=== PATIENT | female | born 1945 | race Caucasian/White ===

== ENCOUNTER 2016-06-01 15:37 | Inpatient (IN) ==
--- NOTE | 2016-06-01 15:42 | Emergency Department Note ---
Disposition Clinical Impression: Pyelonephritis, Sepsis, Fever Disposition: Admitted As Inpatient Condition: Good General Adult HPI - General Chief complaint: ED Fever Stated complaint: Fever / N&V Time Seen by Provider: 06/01/16 15:39 - Related Data Home Medications Medication Instructions Recorded Confirmed Acetaminophen [Tylenol] 650 mg PO Q6HR PRN 12/07/15 06/01/16 Allopurinol [Zyloprim] 200 mg PO QAM 12/07/15 06/01/16 Famotidine [Pepcid] 20 mg PO BID 12/07/15 06/01/16 Ipratropium/Albuterol Neb [Duoneb] 3 ml IH Q4H PRN 12/07/15 06/01/16 Oxybutynin [Ditropan] 5 mg PO HS 12/07/15 06/01/16 Tiotropium [Spiriva] 18 mcg IH QAM 12/07/15 06/01/16 Zafirlukast [Accolate] 20 mg PO BID 12/07/15 06/01/16 BuPROPion SR (12 HR) [Wellbutrin 150 mg PO BID 06/01/16 06/01/16 SR] Diphenoxylate/Atropine [Lomotil 2 tab PO DAILY PRN 06/01/16 06/01/16 2.5 mg/0.025 mg] Fenofibrate [Lofibra] 160 mg PO DAILY 06/01/16 06/01/16 Ferrous Sulfate [Iron] 325 mg PO DAILY 06/01/16 06/01/16 Multivit,Th Iron,Other Min 1 each PO DAILY 06/01/16 06/01/16 [Therems-M] TraMADol [Ultram] 50 mg PO TID PRN 06/01/16 06/01/16 Warfarin [Coumadin] 2.5 mg PO DAILY 06/01/16 06/01/16 Previous Rx's Medication Instructions Recorded Budesonide/Formoterol 160/4.5 2 puff IH BIDR #2 inhaler 12/10/15 [Symbicort 160/4.5] GuaiFENesin ER [Mucinex] 600 mg PO BID PRN 10 Days 12/10/15 Allergies Allergy/AdvReac Type Severity Reaction Status Date / Time No Known Allergies Allergy Verified 06/01/16 17:19 Past Medical History - Past Medical History Medical history: Reports: asthma Surgical history: Reports: hysterectomy Psychiatric history: Reports: depression - Social History Smoking Status: Never smoker Smokeless Tobacco Status: No Alcohol use: Reports: none Drug use: Reports: none Course Vital Signs Temperature 102.5 F H 06/01/16 15:39 Pulse Rate 113 06/01/16 15:39 Respiratory Rate 16 06/01/16 15:39 Blood Pressure 114/81 06/01/16 15:39 O2 Sat by Pulse Oximetry 94 L 06/01/16 15:39 Temperature 99.4 F 06/01/16 18:28 Pulse Rate 98 06/01/16 17:05 Respiratory Rate 18 06/01/16 18:28 Blood Pressure 104/70 06/01/16 18:28 O2 Sat by Pulse Oximetry 94 L 06/01/16 17:05 Oxygen Delivery Oxygen Delivery Room Air Medical Decision Making - Lab Data Result diagrams: 06/01/16 16:47 06/01/16 16:47 Lab Results 06/01/16 06/01/16 06/01/16 Range/Units 16:07 16:47 16:47 WBC 7.8 D (4.3-11.1) K/mcL RBC 3.22 L (3.82-4.97) M/mcL Hgb 10.2 L (11.5-15.4) g/dL Hct 31.1 L (35.3-44.9) % MCV 96.6 (83.0-100.0) fL MCH 31.7 (28.0-33.3) pg MCHC 32.8 (31.6-35.5) g/dL RDW 13.9 (11.5-14.5) % Plt Count 229 (140-400) K/mcL MPV 9.8 (9.4-12.4) fL Immature Gran % 0.4 (0-4) % Seg Neutrophils % 74.2 % Lymphocytes % 7.3 % Monocytes % 15.7 % Eosinophils % 1.9 % Basophils % 0.5 % Neutrophils # 5.8 (1.6-8.9) K/mcL Lymphocytes # 0.6 (0.6-4.6) K/mcL Monocytes # 1.2 (0.0-1.3) K/mcL Eosinophils # 0.2 (0.0-0.6) K/mcL Basophils # 0.0 (0.0-0.2) K/mcL PT 21.5 H (9.4-12.1) Seconds INR 2.0 Sodium (136-145) mEq/L Potassium (3.5-4.5) mEq/L Chloride (98-109) mEq/L Carbon Dioxide (19-29) mEq/L BUN (7-20) mg/dL Creatinine (0.57-1.11) mg/dL Est GFR ( Amer) (> 60) Est GFR (Non-Af Amer) (> 60) BUN/Creatinine Ratio (6-26) Glucose (70-99) mg/dL Calculated Osmolality (280-300) Lactic Acid (0.5-2.2) mmol/L Calcium (8.6-10.8) mg/dL Total Bilirubin (0.2-1.2) mg/dL AST (5-34) Units/L ALT (0-55) Units/L Alkaline Phosphatase (38-126) Units/L Troponin I (0-0.03) ng/mL Serum Total Protein (6.0-8.3) g/dL Albumin (3.5-5.0) g/dL Globulin (2.4-3.5) g/dL Albumin/Globulin Ratio (1.1-2.2) Urine Color Yellow (Yellow) Urine Clarity Turbid A (Clear) Urine pH 7.5 (5.0-8.0) pH Units Ur Specific [place] 1.012 (1.010-1.025) Urine Protein 30 H (Neg-Trace) mg/dL Urine Glucose (UA) Normal (Normal) mg/dL Urine Ketones Negative (Negative) mg/dL Urine Blood Moderate H (Negative) Urine Nitrite Positive A (Negative) Urine Bilirubin Negative (Negative) Urine Urobilinogen Normal (Normal) mg/dL Ur Leukocyte Esterase Large H (Negative) Urine Microscopic RBC 15-30 H (0-3) per hpf Urine Microscopic WBC TNTC H (0-3) per hpf Ur Squamous Epith Cells Many H (None-Few) per lpf Urine Bacteria Many H (None-Few) per hpf Hyaline Casts None Seen (None-Few) per lpf 06/01/16 06/01/16 06/01/16 Range/Units 16:47 16:47 16:47 WBC (4.3-11.1) K/mcL RBC (3.82-4.97) M/mcL Hgb (11.5-15.4) g/dL Hct (35.3-44.9) % MCV (83.0-100.0) fL MCH (28.0-33.3) pg MCHC (31.6-35.5) g/dL RDW (11.5-14.5) % Plt Count (140-400) K/mcL MPV (9.4-12.4) fL Immature Gran % (0-4) % Seg Neutrophils % % Lymphocytes % % Monocytes % % Eosinophils % % Basophils % % Neutrophils # (1.6-8.9) K/mcL Lymphocytes # (0.6-4.6) K/mcL Monocytes # (0.0-1.3) K/mcL Eosinophils # (0.0-0.6) K/mcL Basophils # (0.0-0.2) K/mcL PT (9.4-12.1) Seconds INR Sodium 140 (136-145) mEq/L Potassium 3.8 (3.5-4.5) mEq/L Chloride 108 (98-109) mEq/L Carbon Dioxide 23 (19-29) mEq/L BUN 20 (7-20) mg/dL Creatinine 1.37 H (0.57-1.11) mg/dL Est GFR ( Amer) 46 L (> 60) Est GFR (Non-Af Amer) 38 L (> 60) BUN/Creatinine Ratio 15 (6-26) Glucose 105 H (70-99) mg/dL Calculated Osmolality 293 (280-300) Lactic Acid 0.6 (0.5-2.2) mmol/L Calcium 8.7 (8.6-10.8) mg/dL Total Bilirubin 0.6 (0.2-1.2) mg/dL AST 20 (5-34) Units/L ALT 11 (0-55) Units/L Alkaline Phosphatase 48 (38-126) Units/L Troponin I 0.01 (0-0.03) ng/mL Serum Total Protein 6.4 (6.0-8.3) g/dL Albumin 3.0 L (3.5-5.0) g/dL Globulin 3.4 (2.4-3.5) g/dL Albumin/Globulin Ratio 0.9 L (1.1-2.2) Urine Color (Yellow) Urine Clarity (Clear) Urine pH (5.0-8.0) pH Units Ur Specific [place] (1.010-1.025) Urine Protein (Neg-Trace) mg/dL Urine Glucose (UA) (Normal) mg/dL Urine Ketones (Negative) mg/dL Urine Blood (Negative) Urine Nitrite (Negative) Urine Bilirubin (Negative) Urine Urobilinogen (Normal) mg/dL Ur Leukocyte Esterase (Negative) Urine Microscopic RBC (0-3) per hpf Urine Microscopic WBC (0-3) per hpf Ur Squamous Epith Cells (None-Few) per lpf Urine Bacteria (None-Few) per hpf Hyaline Casts (None-Few) per lpf Attestation Statement - Attestation Attestation: I examined this patient and my medical decision-making was reviewed with the [facility]/PA/Advanced Practice Nurse/Resident Physician. I agree with the documented findings, disposition and treatment plan as described except to the extent set forth below. [id number] time provided Patient presents via EMS from the extended care facility for nausea, vomiting, fever. Home medications reviewed by me. Patient appears in no acute distress on exam. Patient seen and evaluated in conjunction with resident physician
[2016-06-01] MEDS ORDERED: Acetaminophen 650 MG RECTAL SUPP RC ONE (15:45)
--- NOTE | 2016-06-01 15:52 | Emergency Department Note ---
Disposition Clinical Impression: Pyelonephritis Sepsis Qualifiers: Sepsis type: sepsis due to unspecified organism Qualified Code(s): A41.9 - Sepsis, unspecified organism Fever Qualifiers: Fever type: unspecified Qualified Code(s): R50.9 - Fever, unspecified Disposition: Admitted As Inpatient Condition: Good Referrals: NO,PCP [Primary Care Provider] - Forms: ED Satisfaction Letter Time of Disposition: 17:37 Fever HPI - General Chief Complaint: ED Fever Stated Complaint: Fever / N&V Time Seen by Provider: 06/01/16 15:39 Source: patient, EMS Mode of arrival: EMS Limitations: no limitations Nursing Notes Reviewed: Yes Vital Signs Reviewed: Yes - History of Present Illness HPI Narrative: 70-year-old female presents to ED via EMS from longterm for fever, nausea, and vomiting. Patient had oral temperature of 103.2 checked after having a episode of nausea with nonbloody, food content emesis around lunch. Patient does not complain of any pain at this time. She wears a depens and denies urinary symptoms or diarrhea. Here her temperature per rectal 102.5. History of anxiety, hyperlipidemia, and depression. Denies any URI, cough, recent illness. Pt Subjective Complaint: fever - Related Data Home Medications Medication Instructions Recorded Confirmed Acetaminophen [Tylenol] 650 mg PO Q6HR PRN 12/07/15 06/01/16 Allopurinol [Zyloprim] 200 mg PO QAM 12/07/15 06/01/16 Famotidine [Pepcid] 20 mg PO BID 12/07/15 06/01/16 Ipratropium/Albuterol Neb [Duoneb] 3 ml IH Q4H PRN 12/07/15 06/01/16 Oxybutynin [Ditropan] 5 mg PO HS 12/07/15 06/01/16 Tiotropium [Spiriva] 18 mcg IH QAM 12/07/15 06/01/16 Zafirlukast [Accolate] 20 mg PO BID 12/07/15 06/01/16 BuPROPion SR (12 HR) [Wellbutrin 150 mg PO BID 06/01/16 06/01/16 SR] Diphenoxylate/Atropine [Lomotil 2 tab PO DAILY PRN 06/01/16 06/01/16 2.5 mg/0.025 mg] Fenofibrate [Lofibra] 160 mg PO DAILY 06/01/16 06/01/16 Ferrous Sulfate [Iron] 325 mg PO DAILY 06/01/16 06/01/16 Multivit,Th Iron,Other Min 1 each PO DAILY 06/01/16 06/01/16 [Therems-M] TraMADol [Ultram] 50 mg PO TID PRN 06/01/16 06/01/16 Warfarin [Coumadin] 2.5 mg PO DAILY 06/01/16 06/01/16 Previous Rx's Medication Instructions Recorded Budesonide/Formoterol 160/4.5 2 puff IH BIDR #2 inhaler 12/10/15 [Symbicort 160/4.5] GuaiFENesin ER [Mucinex] 600 mg PO BID PRN 10 Days 12/10/15 Allergies Allergy/AdvReac Type Severity Reaction Status Date / Time No Known Allergies Allergy Verified 06/01/16 17:19 All systems ED: reviewed and negative except as stated. Constitutional: Reports: fever. Denies: chills ENT ED: Denies: congestion Cardiovascular: Denies: chest pain, palpitations Respiratory: Denies: cough, dyspnea Gastrointestinal: Reports: nausea, vomiting. Denies: abdominal pain, diarrhea Genitourinary: Denies: urgency, dysuria, frequency Integumentary: Denies: rash, abrasion Fever PMH - Past Medical History Medical history: Reports: asthma Surgical history: Reports: hysterectomy Psychiatric history: Reports: depression SALES SUPPORT ASSISTANT history: Reports: no SALES SUPPORT ASSISTANT history - Social History Smoking Status: Never smoker Alcohol use: Reports: none Drug use: Reports: none Physical Exam - General Limitations: no limitations General appearance: alert, in no apparent distress, other (warm to the touch) - Head Head exam: atraumatic, normocephalic, normal inspection - Eye Eye exam: Present: normal appearance, PERRL, EOMI - ENT ENT exam: normal exam, normal oropharynx, mucous membranes moist, other ( edentulous) - Neck Neck exam: Present: normal inspection, full ROM, trachea midline - Chest Chest inspection: Present: normal inspection, symmetric chest wall rise. Absent : tenderness, rash - Respiratory Respiratory exam: Present: normal lung sounds bilaterally. Absent: respiratory distress, wheezes - Cardiovascular Cardiovascular exam: Present: regular rate, normal rhythm, normal heart sounds - Abdominal Exam Abdominal exam: Present: soft, Non-Tender, normal bowel sounds. Absent: tenderness, distention, guarding, rebound, rigidity - Extremities Exam Extremities exam: Present: normal inspection, full ROM, normal capillary refill. Absent: tenderness, pedal edema, calf tenderness - Neurological Exam Neurological exam: Present: alert, oriented X3 - Psychiatric Psychiatric exam: Present: normal affect, normal mood - Skin Skin exam: Present: warm, dry, intact, normal color. Absent: rash, erythema Course Course Narrative: 80-year-old female presents with fever. She is febrile 102.5 rectal temperature. She is tachycardic 115. Sepsis workup initiated. Patient appears in no acute distress. She is very warm to the touch. Lungs are clear auscultation bilaterally. Heart is regular rate and rhythm. Oropharynx is clear without any erythema or exudates. No obvious source of infection. No rashes visualized. Tylenol for fever. - Reevaluation(s) Reevaluation #1: Labs reviewed. WBC 7.8 urine appears infected. Prior cultures grew ESBL. Given her symptoms will treat for pyelonephritis with Zosyn. Cr 1.37 near baseline. Will admit patient. Time: 17:38 - Consultations Consultation #1: Spoke to bernadine Gimenez to admit for Pyelonephritis, fever, sepsis. Time: 17:36 Vital Signs Temperature 102.5 F H 06/01/16 15:39 Pulse Rate 113 06/01/16 15:39 Respiratory Rate 16 06/01/16 15:39 Blood Pressure 114/81 06/01/16 15:39 O2 Sat by Pulse Oximetry 94 L 06/01/16 15:39 Temperature 102.5 F H 06/01/16 15:39 Pulse Rate 98 06/01/16 17:05 Respiratory Rate 18 06/01/16 17:05 Blood Pressure 114/72 06/01/16 17:05 O2 Sat by Pulse Oximetry 94 L 06/01/16 17:05 Oxygen Delivery Oxygen Delivery Room Air Fever - Medical Records Medical records reviewed: Yes I reviewed the patient's medical records. ECHO EF 60% mild diastolic dysfunction with atypical septal motion consistent with BBB. - Lab Data Lab results reviewed: Yes I reviewed the patient's lab results. Result diagrams: 06/01/16 16:47 06/01/16 16:47 Lab Results 06/01/16 06/01/16 06/01/16 Range/Units 16:07 16:47 16:47 WBC 7.8 D (4.3-11.1) K/mcL RBC 3.22 L (3.82-4.97) M/mcL Hgb 10.2 L (11.5-15.4) g/dL Hct 31.1 L (35.3-44.9) % MCV 96.6 (83.0-100.0) fL MCH 31.7 (28.0-33.3) pg MCHC 32.8 (31.6-35.5) g/dL RDW 13.9 (11.5-14.5) % Plt Count 229 (140-400) K/mcL MPV 9.8 (9.4-12.4) fL Immature Gran % 0.4 (0-4) % Seg Neutrophils % 74.2 % Lymphocytes % 7.3 % Monocytes % 15.7 % Eosinophils % 1.9 % Basophils % 0.5 % Neutrophils # 5.8 (1.6-8.9) K/mcL Lymphocytes # 0.6 (0.6-4.6) K/mcL Monocytes # 1.2 (0.0-1.3) K/mcL Eosinophils # 0.2 (0.0-0.6) K/mcL Basophils # 0.0 (0.0-0.2) K/mcL PT 21.5 H (9.4-12.1) Seconds INR 2.0 Sodium (136-145) mEq/L Potassium (3.5-4.5) mEq/L Chloride (98-109) mEq/L Carbon Dioxide (19-29) mEq/L BUN (7-20) mg/dL Creatinine (0.57-1.11) mg/dL Est GFR ( Amer) (> 60) Est GFR (Non-Af Amer) (> 60) BUN/Creatinine Ratio (6-26) Glucose (70-99) mg/dL Calculated Osmolality (280-300) Lactic Acid (0.5-2.2) mmol/L Calcium (8.6-10.8) mg/dL Total Bilirubin (0.2-1.2) mg/dL AST (5-34) Units/L ALT (0-55) Units/L Alkaline Phosphatase (38-126) Units/L Troponin I (0-0.03) ng/mL Serum Total Protein (6.0-8.3) g/dL Albumin (3.5-5.0) g/dL Globulin (2.4-3.5) g/dL Albumin/Globulin Ratio (1.1-2.2) Urine Color Yellow (Yellow) Urine Clarity Turbid A (Clear) Urine pH 7.5 (5.0-8.0) pH Units Ur Specific [place] 1.012 (1.010-1.025) Urine Protein 30 H (Neg-Trace) mg/dL Urine Glucose (UA) Normal (Normal) mg/dL Urine Ketones Negative (Negative) mg/dL Urine Blood Moderate H (Negative) Urine Nitrite Positive A (Negative) Urine Bilirubin Negative (Negative) Urine Urobilinogen Normal (Normal) mg/dL Ur Leukocyte Esterase Large H (Negative) Urine Microscopic RBC 15-30 H (0-3) per hpf Urine Microscopic WBC TNTC H (0-3) per hpf Ur Squamous Epith Cells Many H (None-Few) per lpf Urine Bacteria Many H (None-Few) per hpf Hyaline Casts None Seen (None-Few) per lpf 06/01/16 06/01/16 06/01/16 Range/Units 16:47 16:47 16:47 WBC (4.3-11.1) K/mcL RBC (3.82-4.97) M/mcL Hgb (11.5-15.4) g/dL Hct (35.3-44.9) % MCV (83.0-100.0) fL MCH (28.0-33.3) pg MCHC (31.6-35.5) g/dL RDW (11.5-14.5) % Plt Count (140-400) K/mcL MPV (9.4-12.4) fL Immature Gran % (0-4) % Seg Neutrophils % % Lymphocytes % % Monocytes % % Eosinophils % % Basophils % % Neutrophils # (1.6-8.9) K/mcL Lymphocytes # (0.6-4.6) K/mcL Monocytes # (0.0-1.3) K/mcL Eosinophils # (0.0-0.6) K/mcL Basophils # (0.0-0.2) K/mcL PT (9.4-12.1) Seconds INR Sodium 140 (136-145) mEq/L Potassium 3.8 (3.5-4.5) mEq/L Chloride 108 (98-109) mEq/L Carbon Dioxide 23 (19-29) mEq/L BUN 20 (7-20) mg/dL Creatinine 1.37 H (0.57-1.11) mg/dL Est GFR ( Amer) 46 L (> 60) Est GFR (Non-Af Amer) 38 L (> 60) BUN/Creatinine Ratio 15 (6-26) Glucose 105 H (70-99) mg/dL Calculated Osmolality 293 (280-300) Lactic Acid 0.6 (0.5-2.2) mmol/L Calcium 8.7 (8.6-10.8) mg/dL Total Bilirubin 0.6 (0.2-1.2) mg/dL AST 20 (5-34) Units/L ALT 11 (0-55) Units/L Alkaline Phosphatase 48 (38-126) Units/L Troponin I 0.01 (0-0.03) ng/mL Serum Total Protein 6.4 (6.0-8.3) g/dL Albumin 3.0 L (3.5-5.0) g/dL Globulin 3.4 (2.4-3.5) g/dL Albumin/Globulin Ratio 0.9 L (1.1-2.2) Urine Color (Yellow) Urine Clarity (Clear) Urine pH (5.0-8.0) pH Units Ur Specific [place] (1.010-1.025) Urine Protein (Neg-Trace) mg/dL Urine Glucose (UA) (Normal) mg/dL Urine Ketones (Negative) mg/dL Urine Blood (Negative) Urine Nitrite (Negative) Urine Bilirubin (Negative) Urine Urobilinogen (Normal) mg/dL Ur Leukocyte Esterase (Negative) Urine Microscopic RBC (0-3) per hpf Urine Microscopic WBC (0-3) per hpf Ur Squamous Epith Cells (None-Few) per lpf Urine Bacteria (None-Few) per hpf Hyaline Casts (None-Few) per lpf - Radiology Data Radiology results reviewed: Yes I reviewed the patient's radiology results. Chest X-Ray 06/01/16 16:14 IMPRESSION: Mild left basilar atelectasis is similar to prior. No evidence of pleural effusion. D/ / 06/01/2016 16:39:45 Mary Lewis MD / Marina Garcia Interpreting Provider: Mary Lewis MD - EKG Data EKG attestation: Yes I reviewed and interpreted this EKG. EKG results narrative: EKG performed 1556 sinus tachycardia 108 bpm, there are no ST elevations or depressions, no T-wave inversions. Intervals are within normal limits LA interval 135 QRS 97 QT QTC 326 389. Compared old EKG performed 12/07/2015 shows consistent findings normal sinus rhythm 98 bpm. No acute ischemic changes.
[2016-06-01] MEDS ORDERED: 0.9 % Sodium Chloride 2,000 ML IVC ONE (16:15)
[2016-06-01 16:18] LABS: Bilirubin,Urine Negative (Negative); Blood,Urine Moderate (Negative); Clarity,Urine Turbid (Clear); Color,Urine Yellow (Yellow); Glucose,Urine (UA) Normal (Normal); Ketones,Urine Negative (Negative); Leukocyte Esterase,Urine Large (Negative); Nitrite,Urine Positive (Negative); PH,Urine 7.5 pH Units (5.0-8.0); Protein,Urine 30 mg/dL (Neg-Trace); Specific Gravity,Urine 1.012 (1.010-1.025); Urobilinogen,Urine Normal (Normal)
[2016-06-01 16:21] LABS: Bacteria,Urine Many per hpf (None-Few); Hyaline Casts,Urine None Seen per lpf (None-Few); RBC,Urine 15-30 per hpf (0-3); Squamous Epithelial Cell,Urine Many per lpf (None-Few); WBC,Urine TNTC per hpf (0-3)
[2016-06-01 17:08] LABS: Basophils % 0.5 %; Eosinophils # 0.2 K/mcL (0.0-0.6); Eosinophils % 1.9 %; Hematocrit 31.1 % (35.3-44.9); Hemoglobin 10.2 g/dL (11.5-15.4); Immature Granulocytes % 0.4 % (0-4); Lymphocytes # 0.6 K/mcL (0.6-4.6); Lymphocytes % 7.3 %; Mean Corpuscular HGB Conc 32.8 g/dL (31.6-35.5); Mean Corpuscular Hemoglobin 31.7 pg (28.0-33.3); Mean Corpuscular Volume 96.6 fL (83.0-100.0); Mean Platelet Volume 9.8 fL (9.4-12.4); Monocytes # 1.2 K/mcL (0.0-1.3); Monocytes % 15.7 %; Neutrophils # 5.8 K/mcL (1.6-8.9); Platelet Count 229 K/mcL (140-400); Red Blood Count 3.22 M/mcL (3.82-4.97); Red Cell Distribution Width 13.9 % (11.5-14.5); Segmented Neutrophils % 74.2 %
[2016-06-01 17:14] LABS: Prothrombin Time 21.5 Seconds (9.4-12.1)
[2016-06-01 17:21] LABS: Albumin/Globulin Ratio 0.9 (1.1-2.2); Bilirubin,Total 0.6 mg/dL (0.2-1.2); Calcium 8.7 mg/dL (8.6-10.8); Globulin 3.4 g/dL (2.4-3.5); Potassium 3.8 mEq/L (3.5-4.5); Total Protein 6.4 g/dL (6.0-8.3)
[2016-06-01] MEDS ORDERED: Piperacillin/Tazobactam 3.375 GM in D5% in Water (Mini-Bag+) 100 ML IVPB ONE (17:34)
--- NOTE | 2016-06-01 20:46 | Internal Med History&Physical ---
<Sarahy Hurt - Last Filed: 06/01/16 21:55> Date of Encounter: 06/01/16 Time of Encounter: 20:42 Assessment and Plan (1) Sepsis Current visit: Yes Status: Suspected patient presented to ER with tachycardia and fever due to pyelonephritis - previous urine culture grew E coli ESBL fluid bolus given in ER, lactic acid 0.6 urine culture, blood culture IV antibiotics - ertapenem supportive care recheck AM labs Qualifiers: Sepsis type: Escherichia coli Qualified Code(s): A41.51 - Sepsis due to Escherichia coli [E. coli] (2) Pyelonephritis Current visit: Yes Status: Acute CT abdomen pelvis due to recurrent ESBL UTI/pyelo infections (3) H/O deep venous thrombosis Current visit: Yes Status: Chronic patient thinks this is recent, this year INR therapeutic in ER continue coumadin, pharmacy to dose (4) Asthma Current visit: Yes Status: Chronic not in exacerbation continue home medications Qualifiers: Asthma severity: unspecified severity Asthma complication type: uncomplicated Qualified Code(s): J45.909 - Unspecified asthma, uncomplicated (5) Anemia Current visit: No Status: Chronic chronic at baseline continue home iron supplementation Qualifiers: Anemia type: iron deficiency Iron deficiency anemia type: unspecified iron deficiency Qualified Code(s): D50.9 - Iron deficiency anemia, unspecified (6) DVT prophylaxis Current visit: Yes Status: Acute SQ heparin Internal Medicine - H&P: HPI Chief complaint: fever Admitted From: Emergency Dept Plans for Post Hospital Care: Transfer [facility] History of present illness: Ms. Luo is a 70 year old female with a past medical history of asthma who presents to the emergency room with a complaint of fever and emesis 1 day. 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 Her fever responded to rectal Tylenol given in the emergency room. UA suggestive of pyelonephritis.. Previous urine culture grew E coli ESBL. Past Med Surg Social Fam HX - Past Medical History Attestation: Yes The following information was validated with the patient. Medical history: asthma Psychiatric history: depression - Past Surgical History Surgical History: hysterectomy - Social History Smoking Status: Never smoker Smokeless Tobacco Status: No Alcohol use: none Drug use: none - Family History Father Living Status: Hx Family Cancer: Yes Mother Living Status: Still Living Internal Medicine - H&P: Meds Acetaminophen [Tylenol] 650 mg PO Q6HR PRN 12/07/15 [History] Allopurinol [Zyloprim] 200 mg PO QAM 12/07/15 [History] Famotidine [Pepcid] 20 mg PO BID 12/07/15 [History] Ipratropium/Albuterol Neb [Duoneb] 3 ml IH Q4H PRN 12/07/15 [History] Oxybutynin [Ditropan] 5 mg PO HS 12/07/15 [History] Tiotropium [Spiriva] 18 mcg IH QAM 12/07/15 [History] Zafirlukast [Accolate] 20 mg PO BID 12/07/15 [History] Budesonide/Formoterol 160/4.5 [Symbicort 160/4.5] 2 puff IH BIDR #2 inhaler 02/13 [Rx] GuaiFENesin ER [Mucinex] 600 mg PO BID PRN 10 Days 12/10/15 [Rx] BuPROPion SR (12 HR) [Wellbutrin SR] 150 mg PO BID 06/01/16 [History] Diphenoxylate/Atropine [Lomotil 2.5 mg/0.025 mg] 2 tab PO DAILY PRN 06/01/16 [ History] Fenofibrate [Lofibra] 160 mg PO DAILY 06/01/16 [History] Ferrous Sulfate [Iron] 325 mg PO DAILY 06/01/16 [History] Multivit,Th Iron,Other Min [Therems-M] 1 each PO DAILY 06/01/16 [History] TraMADol [Ultram] 50 mg PO TID PRN 06/01/16 [History] Warfarin [Coumadin] 2.5 mg PO DAILY 06/01/16 [History] Allergies No Known Allergies Allergy (Verified 06/01/16 17:19) All Systems PM: A 10-system review of systems was performed and is negative for pertinent findings except as documented above in the HPI. - Constitutional Constitutional: fever(s), no chills, no night sweats - EENT Eyes: no change in vision, no discharge, no pain, no photophobia Ears: no ear discharge, no ear pain, no tinnitus Nose, mouth and throat: no dysphagia, no nasal discharge, no neck pain, no sore throat - Cardiovascular Cardiovascular ROS IM: no chest pain, no diaphoresis, no dyspnea, no lightheadedness, no palpitations, no syncope - Respiratory Respiratory: no cough, no dyspnea, no wheezing, no excessive phlegm production - Gastrointestinal Gastrointestinal: nausea, vomiting, no abdominal pain, no diarrhea, no hematemesis, no hematochezia, no melena - Genitourinary Genitourinary: no change in urinary stream, no dysuria, no flank pain, no hematuria - Musculoskeletal Musculoskeletal ROS IM: no numbness, no tingling - Integumentary Integumentary IM: no rash, no unusual bruising - Neurological Neurological ROS: no confusion, no convulsions, no focal weakness, no numbness, no tingling, no tremor(s) - Hematologic/Lymphatic Hematologic/Lymphatic: no easy bruising - Constitutional Vitals: Temp Pulse Resp BP Pulse Ox 98 F 77 18 108/68 95 06/01/16 19:21 06/01/16 19:21 06/01/16 19:21 06/01/16 19:21 06/01/16 19:21 General appearance: Present: cooperative, A&O X 3, pleasant, answers questions appropriately - Head Head exam: Present: atraumatic, normocephalic - Eye Eye exam: Present: PERRL, conjuntiva pink, sclera anicteric Pupils: Present: PERRL - Neck Neck exam general surgery: Present: supple, trachea midline. Absent: lymphadenopathy - Respiratory Respiratory exam: Present: CTAB. Absent: accessory muscle use, rales, rhonchi, wheezes - Cardiovascular Cardiovascular exam: Present: RRR, +S1, +S2. Absent: diastolic murmur, gallop, rubs, systolic murmur - GI/Abdominal GI/Abdominal exam: Present: normal bowel sounds, soft, no peritoneal signs. Absent: distended, tenderness - Extremities Exam Extremities exam: Present: warm, radial pulses palpable and symetrical. Absent : calf tenderness, cyanotic, pedal edema - Neurological Exam Neurological exam: Present: CN II-XII intact, oriented X3, no focal deficits. Absent: pronater drift, facial droop, speech deficit - Skin Skin exam: Present: dry, intact Internal Med - H&P Results - Labs CBC & Chem 7: 06/01/16 16:47 06/01/16 16:47 <Roseline Richardson - Last Filed: 06/02/16 03:56> Date of Encounter: 06/01/16 Time of Encounter: 19:30 Assessment and Plan (1) Sepsis Current visit: Yes Status: Suspected Qualifiers: Sepsis type: Escherichia coli Qualified Code(s): A41.51 - Sepsis due to Escherichia coli [E. coli] (2) Pyelonephritis Current visit: Yes Status: Acute (3) Asthma Current visit: Yes Status: Chronic Qualifiers: Asthma severity: unspecified severity Asthma complication type: uncomplicated Qualified Code(s): J45.909 - Unspecified asthma, uncomplicated (4) Anemia Current visit: No Status: Chronic Qualifiers: Anemia type: iron deficiency Iron deficiency anemia type: unspecified iron deficiency Qualified Code(s): D50.9 - Iron deficiency anemia, unspecified Internal Medicine - H&P: HPI Admitted From: Emergency Dept Plans for Post Hospital Care: [facility] History of present illness: I examined this patient and my medical decision-making was reviewed with the Resident Physician. I agree with the documented history of present illness, review of systems, past medical, surgical social and family histories and examination findings, disposition and treatment plan as described above except to any changes set forth below. Ms. Luo is a 70 year old female patient who presented to the ER with complaints of nausea or vomiting and fever. Previous history of urinary tract infection with ESBL Escherichia coli. Denies any abdominal pain. No dysuria. Denies any lightheadedness chills or rigors. She is already feeling better. All Systems PM: A 10-system review of systems was performed and is negative for pertinent findings except as documented above in the HPI. - Constitutional Vitals: Temp Pulse Resp BP Pulse Ox 98.2 F 74 18 106/67 95 06/01/16 23:43 06/01/16 23:43 06/01/16 23:43 06/01/16 23:43 06/01/16 23:43 General appearance: Present: cooperative, A&O X 3, pleasant, no acute distress, answers questions appropriately - Respiratory Respiratory exam: Present: CTAB. Absent: accessory muscle use, rales, rhonchi, wheezes - Cardiovascular Cardiovascular exam: Present: RRR, +S1, +S2. Absent: diastolic murmur, gallop, rubs, systolic murmur - Extremities Exam Extremities exam: Present: warm, radial pulses palpable and symetrical. Absent : calf tenderness, cyanotic, pedal edema - Neurological Exam Neurological exam: Present: CN II-XII intact, oriented X3, no focal deficits. Absent: pronater drift, facial droop, speech deficit Internal Med - H&P Results - Labs CBC & Chem 7: 06/01/16 16:47 06/01/16 16:47 - Impressions ITS Impressions Abdomen/Pelvis CT 06/01/16 21:42 IMPRESSION: 1. Scattered calcific densities along the left kidney measure up to 8 mm, which are favored to represent nonobstructive calculi, with parenchymal calcifications less likely. Several calcific foci along the inferior pole are associated with cystic spaces, which could represent stones within calyceal diverticula or less likely nodular calcification of renal cysts. Further evaluation with CT urogram could be considered. 2. Chronic urothelial thickening on the left,, likely the sequelae of prior infection/inflammation. Punctate nonobstructive calculi are seen in the distal left ureter, which is unchanged since at least 12/28/2015. The left ureter is decompressed. 3. Malrotated right kidney. No right-sided renal calculi. 4. Cholelithiasis. 5. Moderate diverticulosis. D/ / Jag Saini MD / Jag Saini MD Interpreting Provider: Jag Saini MD - Attending Attestation This document has been at least partially created by [employer] recognition technology by Dr. Richardson. Errors in grammar, wording or other phrases may exist. If errors are found after the documentation is signed, they will be addressed individually in the addendum section of this document when appropriate. Sepsis with possible ESBL Escherichia coli from acute pyelonephritis: We will treat with IV ertapenem. Follow culture results. Patient may need long-term IV antibiotics.
[2016-06-01] MEDS ORDERED: Ondansetron ODT 4 MG TAB.RAPDIS SL PRN (20:53)
[2016-06-01] MEDS ORDERED: Acetaminophen 325 MG TABLET PO PRN (20:53)
[2016-06-01] MEDS ORDERED: Naloxone 0.4 MG/ML INJ IVP PRN (20:53)
[2016-06-01] MEDS ORDERED: traMADol 50 MG TABLET PO PRN (20:56)
[2016-06-01] MEDS ORDERED: Diphenoxylate/Atropine 1 TAB TABLET PO PRN (20:56)
[2016-06-01] MEDS: Famotidine 20 MG TABLET PO SCH (21:50)
[2016-06-01] MEDS: BuPROPion SR (12 HR) 150 MG TABLET PO SCH (21:50)
[2016-06-01] MEDS: *HR* Heparin 5,000 UNIT/ML VIAL SQ SCH (21:50)
[2016-06-02 04:00] LABS: Basophils % 0.5 %; Eosinophils # 0.2 K/mcL (0.0-0.6); Eosinophils % 3.1 %; Hematocrit 30.3 % (35.3-44.9); Hemoglobin 9.6 g/dL (11.5-15.4); Immature Granulocytes % 0.4 % (0-4); Lymphocytes # 0.8 K/mcL (0.6-4.6); Lymphocytes % 13.9 %; Mean Corpuscular HGB Conc 31.7 g/dL (31.6-35.5); Mean Corpuscular Volume 97.7 fL (83.0-100.0); Mean Platelet Volume 9.9 fL (9.4-12.4); Monocytes % 17.4 %; Neutrophils # 3.6 K/mcL (1.6-8.9); Platelet Count 223 K/mcL (140-400); Red Cell Distribution Width 14.1 % (11.5-14.5); Segmented Neutrophils % 64.7 %
[2016-06-02 04:23] LABS: Calcium 8.3 mg/dL (8.6-10.8)
[2016-06-02] MEDS: Budesonide/Formoterol 160/4.5 MDI IH SCH ×3 (04:53→19:54)
[2016-06-02] MEDS: *HR* Heparin 5,000 UNIT/ML VIAL SQ SCH ×3 (06:08→22:19)
[2016-06-02 08:01] LABS: blaKPC Carbapenem-Resist Gene Not Detected (Not Detect)
[2016-06-02 08:02] LABS: Acinetobacter baumannii by PCR Not Detected (Not Detect); Candida albicans by PCR Not Detected (Not Detect); Candida glabrata by PCR Not Detected (Not Detect); Candida krusei by PCR Not Detected (Not Detect); Candida parapsilosis by PCR Not Detected (Not Detect); Candida tropicalis by PCR Not Detected (Not Detect); Enterococcus by PCR Not Detected (Not Detect); Escherichia coli by PCR ***DETECTED*** (Not Detect); Klebsiella oxytoca by PCR Not Detected (Not Detect); Klebsiella pneumoniae by PCR Not Detected (Not Detect); Pseudomonas aeruginosa by PCR Not Detected (Not Detect); Serratia marcescens by PCR Not Detected (Not Detect); Staphylococcus aureus by PCR Not Detected (Not Detect); Streptococcus agalactiae(B)PCR Not Detected (Not Detect); Streptococcus by PCR Not Detected (Not Detect); Streptococcus pneumoniae PCR Not Detected (Not Detect); Streptococcus pyogenes (A) PCR Not Detected (Not Detect)
[2016-06-02] MEDS ORDERED: Ertapenem 1,000 MG in 0.9 % Sodium Chloride Mini Bag 100 ML IVPB SCH (09:00)
[2016-06-02] MEDS ORDERED: *HR* Warfarin 2.5 MG TABLET PO SCH ×2 (09:00→18:00)
[2016-06-02] MEDS: BuPROPion SR (12 HR) 150 MG TABLET PO SCH ×2 (09:56→21:20)
[2016-06-02] MEDS: Ertapenem 1,000 MG in 0.9 % Sodium Chloride Mini Bag 100 ML IVPB SCH (09:56)
[2016-06-02] MEDS: Famotidine 20 MG TABLET PO SCH ×2 (09:56→21:20)
[2016-06-02] MEDS: Fenofibrate 54 MG TABLET PO SCH (09:56)
[2016-06-02] MEDS: Tiotropium 18 MCG inhalation IH SCH (10:37)
--- NOTE | 2016-06-02 13:11 | Internal Med Progress Note ---
Date of Encounter: 06/02/16 Time of Encounter: 11:40 - Assessment and plan (1) Sepsis Current Visit: Yes Status: Suspected Assessment and plan: Pt had a fever early this a.m., afebrile this afternoon. Pt is not tachycardiac , she is normotensive, and sats are in the low 90s. Prior urine culture grew E.coli ESBL. Blood culture today also positive for E. coli. Continue fluids and Ertapenem 1 gram IV daily. Qualifiers: Sepsis type: Escherichia coli Qualified Code(s): A41.51 - Sepsis due to Escherichia coli [E. coli] (2) Pyelonephritis Current Visit: Yes Status: Acute Assessment and plan: Plan as above. (3) Fever Current Visit: Yes Status: Acute Assessment and plan: Tylenol prn fever and continue antibiotics and fever. Monitor vitals. Qualifiers: Qualified Code(s): R50.9 - Fever, unspecified (4) H/O deep venous thrombosis Current Visit: Yes Status: Chronic Assessment and plan: Pt takes Coumadin daily. INR 2.0 in ER yesterday. Pt is therapeutic. Heparin Subq for DVT prophylaxis and Coumadin from home. PT/INR in the a.m. Monitor labs. (5) Asthma Current Visit: Yes Status: Chronic Assessment and plan: Stable. Continue home medications, Symbicort, Spiriva, and Accolate. Continue to monitor. VS q4h with pulse ox. Qualifiers: Asthma severity: unspecified severity Asthma complication type: uncomplicated Qualified Code(s): J45.909 - Unspecified asthma, uncomplicated (6) Anemia Current Visit: No Status: Chronic Assessment and plan: Chronic. AT baseline. Will continue to monitor. [facility] Qualifiers: Anemia type: iron deficiency Iron deficiency anemia type: unspecified iron deficiency Qualified Code(s): D50.9 - Iron deficiency anemia, unspecified (7) DVT prophylaxis Current Visit: Yes Status: Acute Assessment and plan: Subq Heparin. - Time Spent With Patient less than 15 minutes - Subjective Interval history: Pt states that she is not feeling better now. States that she feels like she has been hit by a [employer] truck. Denies nausea/vomiting, BE, or dysuria. Pt states that "it doesn't burn down there anymore." - Constitutional Vitals: Temp Pulse Resp BP Pulse Ox 97.7 F 97 16 121/70 91 L 06/02/16 12:35 06/02/16 12:35 06/02/16 12:35 06/02/16 12:35 06/02/16 12:35 General appearance: Present: cooperative, A&O X 2, pleasant, no acute distress, answers questions appropriately Exam: Pt is alert to name and place only. Speech normal for pt. - Eye Eye exam: Present: normal appearance, conjuntiva pink. Absent: nystagmus - ENT ENT exam: Present: mucous membranes moist, normal exam, normal external ear exam - Neck Neck exam general surgery: Present: normal inspection. Absent: lymphadenopathy , tenderness - Respiratory Respiratory exam: Present: decreased breath sounds, CTAB. Absent: accessory muscle use, chest wall tenderness, rales, respiratory distress, rhonchi, stridor , wheezes, tachypnea - Cardiovascular Cardiovascular exam: Present: RRR, +S1, +S2. Absent: bradycardia, diastolic murmur, systolic murmur, tachycardia - GI/Abdominal GI/Abdominal exam: Present: soft. Absent: tenderness - Extremities Exam Extremities exam: Present: normal capillary refill, tenderness, warm, radial pulses palpable and symetrical. Absent: calf tenderness, cyanotic, joint swelling, pedal edema - Neurological Exam Neurological exam: Present: alert, reflexes normal, no focal deficits. Absent: speech deficit Internal Medicine: Result - Labs CBC & Chem 7: 06/02/16 03:04 06/02/16 03:04 Labs: Short CBC 06/02/16 Range/Units 03:04 WBC 5.5 (4.3-11.1) K/mcL Hgb 9.6 L (11.5-15.4) g/dL Hct 30.3 L (35.3-44.9) % Plt Count 223 (140-400) K/mcL Neutrophils # 3.6 (1.6-8.9) K/mcL BMP 06/02/16 03:04 Sodium 143 Potassium 4.0 Chloride 111 H Carbon Dioxide 25 BUN 16 Creatinine 1.30 H Glucose 97 Calcium 8.3 L - ABG Interpretation ABG results: PT/INR, D-dimer PT 21.5 Seconds (9.4-12.1) H 06/01/16 16:47 - Impressions Impressions Abdomen/Pelvis CT 06/01/16 21:42 IMPRESSION: 1. Scattered calcific densities along the left kidney measure up to 8 mm, which are favored to represent nonobstructive calculi, with parenchymal calcifications less likely. Several calcific foci along the inferior pole are associated with cystic spaces, which could represent stones within calyceal diverticula or less likely nodular calcification of renal cysts. Further evaluation with CT urogram could be considered. 2. Chronic urothelial thickening on the left, likely the sequelae of prior infection/inflammation. Punctate nonobstructive calculi are seen in the distal left ureter, which is unchanged since at least 12/28/2015. The left ureter is decompressed. 3. Malrotated right kidney. No right-sided renal calculi. 4. Cholelithiasis. 5. Moderate diverticulosis. D/ / 06/02/2016 08:22:09 Jag Saini MD / Marina Garcia Interpreting Provider: Jag Saini MD Consult Discharge Plan - Plan Referrals: NO,PCP [Primary Care Provider] -
[2016-06-02] MEDS ORDERED: Warfarin perPT PO PRN (18:00)
[2016-06-03 04:48] LABS: Basophils % 0.5 %; Eosinophils # 0.1 K/mcL (0.0-0.6); Eosinophils % 0.9 %; Hematocrit 29.4 % (35.3-44.9); Hemoglobin 9.6 g/dL (11.5-15.4); Immature Granulocytes % 0.4 % (0-4); Lymphocytes # 0.8 K/mcL (0.6-4.6); Lymphocytes % 14.8 %; Mean Corpuscular HGB Conc 32.7 g/dL (31.6-35.5); Mean Corpuscular Hemoglobin 31.4 pg (28.0-33.3); Mean Corpuscular Volume 96.1 fL (83.0-100.0); Mean Platelet Volume 9.8 fL (9.4-12.4); Monocytes % 18.6 %; Neutrophils # 3.6 K/mcL (1.6-8.9); Platelet Count 226 K/mcL (140-400); Red Blood Count 3.06 M/mcL (3.82-4.97); Red Cell Distribution Width 13.9 % (11.5-14.5); Segmented Neutrophils % 64.8 %
[2016-06-03 04:49] LABS: INR 1.7; Prothrombin Time 18.9 Seconds (9.4-12.1)
[2016-06-03 05:00] LABS: Calcium 8.3 mg/dL (8.6-10.8); Potassium 3.6 mEq/L (3.5-4.5)
[2016-06-03 05:20] LABS: Platelet Estimate Normal (Normal)
[2016-06-03] MEDS: *HR* Heparin 5,000 UNIT/ML VIAL SQ SCH ×3 (06:07→21:37)
--- NOTE | 2016-06-03 07:18 | Electrocardiograph Report ---
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
[2016-06-03] MEDS: Budesonide/Formoterol 160/4.5 MDI IH SCH ×2 (08:01→20:26)
[2016-06-03] MEDS: Tiotropium 18 MCG inhalation IH SCH (08:01)
[2016-06-03] MEDS: BuPROPion SR (12 HR) 150 MG TABLET PO SCH ×2 (08:28→21:35)
[2016-06-03] MEDS: Fenofibrate 54 MG TABLET PO SCH (08:28)
[2016-06-03] MEDS: Ertapenem 1,000 MG in 0.9 % Sodium Chloride Mini Bag 100 ML IVPB SCH (08:28)
[2016-06-03] MEDS: Famotidine 20 MG TABLET PO SCH (08:28)
--- NOTE | 2016-06-03 12:35 | Internal Med Progress Note ---
<Felicia Galindo - Last Filed: 06/03/16 13:11> Date of Encounter: 06/03/16 Time of Encounter: 09:30 - Assessment and plan (1) Sepsis Current Visit: Yes Status: Suspected Assessment and plan: Pt is afebrile, normotensive, pulse WNL, sats still remain in the low 90s. Continuing Ertapenem 1 gram daily. Family member requested ID consult, which I entered. Urology consult entered as well. Qualifiers: Sepsis type: Escherichia coli Qualified Code(s): A41.51 - Sepsis due to Escherichia coli [E. coli] (2) Pyelonephritis Current Visit: Yes Status: Acute Assessment and plan: Plan as above. Pt denies CVA tenderness bilaterally. (3) Fever Current Visit: Yes Status: Resolved Assessment and plan: No fever for >24 hours. Will continue to monitor. Tylenol prn fever. Continue antibiotics. Qualifiers: Fever type: unspecified Qualified Code(s): R50.9 - Fever, unspecified (4) CKD (chronic kidney disease) stage 3, GFR 30-59 ml/min Current Visit: Yes Status: Chronic Assessment and plan: Stable. Creatinine is at baseline today 1.42. GFR 37. No NSAIDs, monitor IVF and labs. (5) H/O deep venous thrombosis Current Visit: Yes Status: Chronic Assessment and plan: Subtherapeutic INR today, 1.7. Pharmacy adjusted Coumadin dose. Remains on Coumadin and Heparin subq. Will continue to monitor pt and labs. (6) Asthma Current Visit: Yes Status: Chronic Assessment and plan: Stable. Lungs clear. Continue home medications and monitor vital signs with pulse ox q4h. Qualifiers: Asthma severity: unspecified severity Asthma complication type: uncomplicated Qualified Code(s): J45.909 - Unspecified asthma, uncomplicated (7) Anemia Current Visit: No Status: Chronic Assessment and plan: Stable. Remains at baseline. Will continue to monitor and continue Iron supplement. Qualifiers: Anemia type: iron deficiency Iron deficiency anemia type: unspecified iron deficiency Qualified Code(s): D50.9 - Iron deficiency anemia, unspecified (8) DVT prophylaxis Current Visit: Yes Status: Acute Assessment and plan: Subcutaneous Heparin. - Time Spent With Patient less than 15 minutes - Subjective Interval history: Pt states that she is feeling better now than yesterday. Denies nausea/vomiting , BE, dysuria, or pain. Pt states that it is 1975 and she is not aware what month it is, but she can state her name and knows that she is in the hospital. - Constitutional Vitals: Temp Pulse Resp BP Pulse Ox 99.9 F H 83 12 111/63 93 L 06/03/16 12:17 06/03/16 12:17 06/03/16 12:17 06/03/16 12:17 06/03/16 12:17 General appearance: Present: cooperative, A&O X 2, pleasant, no acute distress, answers questions appropriately - Head Head exam: Present: normal inspection - Eye Eye exam: Present: normal appearance, conjuntiva pink. Absent: nystagmus - ENT ENT exam: Present: mucous membranes moist, normal exam - Neck Neck exam general surgery: Present: normal inspection. Absent: lymphadenopathy , tenderness - Respiratory Respiratory exam: Present: CTAB. Absent: decreased breath sounds, rales, respiratory distress, rhonchi, stridor, wheezes - Cardiovascular Cardiovascular exam: Present: distant heart sounds, RRR, +S1, +S2. Absent: diastolic murmur, systolic murmur - GI/Abdominal GI/Abdominal exam: Present: normal bowel sounds, soft. Absent: tenderness - Extremities Exam Extremities exam: Present: normal capillary refill, normal inspection, warm, radial pulses palpable and symetrical. Absent: cyanotic, joint swelling, pedal edema, tenderness Additional comments: +2 pedal pulses rupali. - Neurological Exam Neurological exam: Present: alert. Absent: no focal deficits, facial droop, speech deficit Internal Medicine: Result - Labs CBC & Chem 7: 06/03/16 03:57 06/03/16 03:57 - ABG Interpretation ABG results: PT/INR, D-dimer PT 18.9 Seconds (9.4-12.1) H 06/03/16 03:57 Consult Discharge Plan - Plan Referrals: NO,PCP [Primary Care Provider] - <Mariposa Mercer - Last Filed: 06/03/16 14:40> Date of Encounter: 06/03/16 Time of Encounter: 10:00 - Subjective Interval history: Patient seen and examined. On examination, she is sitting upright in bed watching television. She denies pain at this time and states she ate all of her breakfast. She is able to answer simple questions however is oriented to person and place but not to time. UTI preliminary report with gram-negative rods. Patient with history of ESBL. Continue IV ertapenem. Initial blood culture gram-negative, will repeat today. Infectious disease and urology brought on board given her recurrent UTIs. We will attempt to obtain further information from family as patient is unable to tell me which custodial she is not or how long she has been there. Vital signs are stable. Heart rate and blood pressure are stable. Patient is afebrile. No leukocytosis. SIRS has resolved. - Constitutional Vitals: Temp Pulse Resp BP Pulse Ox 99.9 F H 83 12 111/63 93 L 06/03/16 12:17 06/03/16 12:17 06/03/16 12:17 06/03/16 12:17 06/03/16 12:17 General appearance: Present: A&O X 2, pleasant, no acute distress, answers questions appropriately (simple questions) - Head Head exam: Present: atraumatic, normocephalic - Eye Eye exam: Present: PERRL, conjuntiva pink, sclera anicteric Pupils: Present: PERRL - Neck Neck exam general surgery: Present: supple, trachea midline. Absent: lymphadenopathy - Respiratory Respiratory exam: Present: CTAB. Absent: accessory muscle use, rales, respiratory distress, rhonchi, wheezes - Cardiovascular Cardiovascular exam: Present: RRR, +S1, +S2. Absent: diastolic murmur, gallop, rubs, systolic murmur - GI/Abdominal GI/Abdominal exam: Present: normal bowel sounds, soft, no peritoneal signs. Absent: distended, tenderness - Extremities Exam Extremities exam: Present: warm, radial pulses palpable and symetrical. Absent : calf tenderness, cyanotic, pedal edema - Neurological Exam Neurological exam: Present: alert, CN II-XII intact, no focal deficits, strengths equal and symetr throughout. Absent: pronater drift, facial droop, speech deficit - Skin Skin exam: Present: dry, intact, normal color, warm Internal Medicine: Result - Labs CBC & Chem 7: 06/03/16 03:57 06/03/16 03:57 - ABG Interpretation ABG results: PT/INR, D-dimer PT 18.9 Seconds (9.4-12.1) H 06/03/16 03:57
--- NOTE | 2016-06-03 14:25 | Infectious Disease Consult ---
Date of Encounter: 06/03/16 Time of Encounter: 14:21 Assessment and Plan (1) Sepsis Status: Suspected Assessment and plan: The patient had two SIRS criteria on admission. Likely secondary to UTI and bacteremia. Improved. The patient has been afebrile x 24 hours. Tachycardia has resolved. Blood cultures drawn 06/01/16 are positive 1/2 sets for GNR - PCR picked up E. coli, likely ESBL based on urine culture results. Repeat blood cultures x 2 sets now. Qualifiers: Sepsis type: Escherichia coli Qualified Code(s): A41.51 - Sepsis due to Escherichia coli [E. coli] (2) Bacteremia Status: Acute Assessment and plan: Causative organism E. coli, likely ESBL based on urine culture results. Source: UTI. Blood cultures drawn 06/01/16 is positive 1/2 sets for GNR - PCR picked up E. coli. Repeat blood cultures x 2 sets now. Continue Ertapenem 1 gram IV daily. Duration of treatment depends on the clinical picture, but likely 14 days from the first set of negative blood cultures. Monitor renal function and dose-adjust antibiotics. (3) UTI (urinary tract infection) Status: Acute Assessment and plan: Causative organism E. coli ESBL. Recurrent vs. relapse. Etiology likely multifactorial: post-menopausal female vs. colonization of the bladder vs. urinary incontinence/incomplete bladder emptying. Called [facility] where the patient resides. Spoke with nurse Grullon. States patient was treated most recently with Invanz 1 gram IV daily x 7 days --> inadequately treated as ESBL requires 10-14 day course of antibiotics. Urine cultures have been positive dating back to November 2015. CT of the abdomen and pelvis shows multiple non-obstructing renal calculi in the left kidney. Consider urology consult for further evaluation. Continue Ertapenem 1 gram IV daily. Encourage adequate PO intake. Start probiotic. Duration of treatment depends on the clinical picture, but likely 14 days from first set of negative blood cultures. Monitor renal function and dose-adjust antibiotics. Qualifiers: Urinary tract infection type: site unspecified Hematuria presence: without hematuria Qualified Code(s): N39.0 - Urinary tract infection, site not specified (4) Renal calculus, left Status: Acute Assessment and plan: CT of the abdomen and pelvis shows scattered calcific densities along the left kidney which are favored to represent nonobstructive calculi. CT urogram recommended by radiologist. Could be secondary to the patient's recurrent UTI. Consider urology consult. (5) CKD (chronic kidney disease) stage 3, GFR 30-59 ml/min Status: Chronic Assessment and plan: Serum creatinine stable. Continue to monitor closely. Dose-adjust antibiotics based on creatinine clearance. Avoid nephrotoxins. (6) Asthma Status: Chronic Qualifiers: Asthma severity: unspecified severity Asthma complication type: uncomplicated Qualified Code(s): J45.909 - Unspecified asthma, uncomplicated Infectious Disease HPI - Data of Consult Patient: new to practice Consult date: 06/03/16 Requesting Physician: Mariposa Caro Primary Care Provider: PCP NO - Consult Narrative Reason for consult: ESBL UTI History of present illness: Ms. Luo is a 70 year old female the past medical history of asthma and depression. She was admitted to the hospital June 02, 2015 for fever and UTI. We are consulted June 03 for further evaluation and treatment recommendations regarding Escherichia coli ESBL on the urine. Briefly, the patient 70-year-old female past medical history as stated above. Patient presented to the emergency department on the day of admission with complaints of fever and one episode of vomiting. Upon arrival, the patient had a fever 102.5. and was tachycardic, but was otherwise hemodynamically stable. Laboratory studies revealed a normal white blood cell count, however, the patient has chronic neutropenia. Her basic metabolic panel significant for serum creatinine of 1.37. Her lactic acid was normal. Urinalysis was positive for pyuria. Chest x-ray showed left basilar atelectasis. CT of the abdomen and pelvis showed multiple nonobstructing calculi, but no hydronephrosis. The patient was started on empiric IV Ertapenem based on previous urine cultures that grew ESBL E. coli. She was admitted to the hospital. We've been asked to evaluate and make further recommendations. During my exam today, the patient endorses a history as stated above. The patient reports that she had a high fever and one episode of nonbloody food content emesis [facility] the [facility] she [facility]. She denies any chills or rigors. She denies any headache or neck pain. She denies any congestion, earache , or sore throat. She denies any chest pain, shortness of breath, or cough. She denies any, pain or CVA tenderness. She denies any urinary complaints, but does report some urinary continence that is normal for her. She denies pain in any of her extremities. Review of systems is otherwise negative. Review of the medical record reveals the patient has had multiple urine cultures come back positive for Escherichia coli ESBL. I contacted the [facility] with the patient lives and spoke with her nurse. She stated that the patient was most recently treated back on May 14 with a seven-day course of IV Invanz. CC: Mariposa Caro Past Med Surg Social Fam HX - Past Medical History Attestation: Yes The following information was validated with the patient. Source: patient, old records reviewed, nursing notes reviewed Medical history: asthma Psychiatric history: depression - Past Surgical History Surgical History: hysterectomy - Social History Smoking Status: Never smoker Smokeless Tobacco Status: No Alcohol use: none Drug use: none Occupational status: unemployed [facility] Activity Level: Uses cane/walker Recent Out of Country Travel Within the Last 8 Weeks: No Exposure or Possible Exposure to Illness During Travel: No - Family History Father Adopted: [place]: JARROD Family Member Ethnicity: Non- Living Status: Age at : 87 Cause of : CANCER Hx Family Cancer: Yes Mother Living Status: Still Living Infectious Disease-CN:Meds Acetaminophen [Tylenol] 650 mg PO Q6HR PRN 12/07/15 [History] Allopurinol [Zyloprim] 200 mg PO QAM 12/07/15 [History] Famotidine [Pepcid] 20 mg PO BID 12/07/15 [History] Ipratropium/Albuterol Neb [Duoneb] 3 ml IH Q4H PRN 12/07/15 [History] Oxybutynin [Ditropan] 5 mg PO HS 12/07/15 [History] Tiotropium [Spiriva] 18 mcg IH QAM 12/07/15 [History] Zafirlukast [Accolate] 20 mg PO BID 12/07/15 [History] Budesonide/Formoterol 160/4.5 [Symbicort 160/4.5] 2 puff IH BIDR #2 inhaler 02/13 [Rx] GuaiFENesin ER [Mucinex] 600 mg PO BID PRN 10 Days 12/10/15 [Rx] BuPROPion SR (12 HR) [Wellbutrin SR] 150 mg PO BID 06/01/16 [History] Diphenoxylate/Atropine [Lomotil 2.5 mg/0.025 mg] 2 tab PO DAILY PRN 06/01/16 [ History] Fenofibrate [Lofibra] 160 mg PO DAILY 06/01/16 [History] Ferrous Sulfate [Iron] 325 mg PO DAILY 06/01/16 [History] Multivit,Th Iron,Other Min [Therems-M] 1 each PO DAILY 06/01/16 [History] TraMADol [Ultram] 50 mg PO TID PRN 06/01/16 [History] Warfarin [Coumadin] 2.5 mg PO DAILY 06/01/16 [History] Allergies No Known Allergies Allergy (Verified 06/01/16 17:19) All systems: reviewed and no additional remarkable complaints except as stated Exam - Constitutional Vitals: Temp Pulse Resp BP Pulse Ox 99.9 F H 83 12 111/63 93 L 06/03/16 12:17 06/03/16 12:17 06/03/16 12:17 06/03/16 12:17 06/03/16 12:17 General appearance: average body habitus, cooperative, no acute distress - Head Head exam: Present: atraumatic, normal inspection, normocephalic - Eye Eye exam: Present: EOMI, normal appearance, PERRL Pupils: Present: normal accommodation - ENT ENT exam: Present: mucous membranes moist - Neck Neck exam: Present: normal inspection - Respiratory Respiratory exam: Present: CTAB. Absent: rales, respiratory distress, rhonchi, wheezes - Cardiovascular Cardiovascular exam: Present: RRR, +S1, +S2 - GI/Abdominal GI/Abdominal exam: Present: normal bowel sounds, soft. Absent: distended, tenderness Additional comments: Sotelo catheter noted to be draining clear yellow urine. - Extremities Exam Extremities exam: Present: normal inspection. Absent: joint swelling, pedal edema, tenderness - Back Exam Back exam: Absent: CVA tenderness (L), CVA tenderness (R) - Neurological Exam Neurological exam: Present: alert, oriented X3, no focal deficits - Psychiatric Psychiatric exam: Present: normal affect, normal mood - Skin Skin exam: Present: dry, intact, normal color, warm Infectious Disease CN: Results - Labs CBC & Chem 7: 06/04/16 04:09 06/04/16 04:09 Cultures: Cultures 06/01/16 16:46 Blood Culture - Preliminary Peripheral Venipuncture Gram Negative Prosper 06/01/16 22:33 Urine Culture - Preliminary Urine,Catheterized Gram Negative Prosper Serology: Serology 06/01/16 06/01/16 Range/Units 16:46 16:07 Urine Color Yellow (Yellow) Urine Clarity Turbid A (Clear) Urine pH 7.5 (5.0-8.0) pH Units Ur Specific Mck[place]rick 1.012 (1.010-1.025) Urine Protein 30 H (Neg-Trace) mg/dL Urine Glucose (UA) Normal (Normal) mg/dL Urine Ketones Negative (Negative) mg/dL Urine Blood Moderate H (Negative) Urine Nitrite Positive A (Negative) Urine Bilirubin Negative (Negative) Urine Urobilinogen Normal (Normal) mg/dL Ur Leukocyte Esterase Large H (Negative) Urine Microscopic RBC 15-30 H (0-3) per hpf Urine Microscopic WBC TNTC H (0-3) per hpf Ur Squamous Epith Cells Many H (None-Few) per lpf Urine Bacteria Many H (None-Few) per hpf Hyaline Casts None Seen (None-Few) per lpf A. baumannii (TEM-PCR) Not Detected (Not Detect) Carole albicans (PCR) Not Detected (Not Detect) C. glabrata (PCR) Not Detected (Not Detect) C. krusei (PCR) Not Detected (Not Detect) C. parapsilosis (PCR) Not Detected (Not Detect) C. tropicalis (PCR) Not Detected (Not Detect) Enterobacteriac sp PCR DETECTED A (Not Detect) E. cloacae complex PCR Not Detected (Not Detect) Enterococcus sp PCR Not Detected (Not Detect) E. coli (PCR) DETECTED A (Not Detect) H. influenzae DNA Not Detected (Not Detect) Klebsiella oxytoca PCR Not Detected (Not Detect) Klebsiella pneumoniae Not Detected (Not Detect) Listeria (PCR) Not Detected (Not Detect) N. meningitidis (PCR) Not Detected (Not Detect) Proteus species (PCR) Not Detected (Not Detect) Serratia marcescens PCR Not Detected (Not Detect) Staphylococcus sp PCR Not Detected (Not Detect) Staph aureus (PCR) Not Detected (Not Detect) MRS (TEM-PCR) N/A (Not Detect) Streptococcus sp PCR Not Detected (Not Detect) Group A Strep DNA Not Detected (Not Detect) Group B Strep (PCR) Not Detected (Not Detect) Strep pneumoniae (PCR) Not Detected (Not Detect) P. aeruginosa (TEM-PCR) Not Detected (Not Detect) VRE (PCR) N/A (Not Detect) KPC (blaKPC) Detect PCR Not Detected (Not Detect) Consult Discharge Plan - Plan Referrals: NO,PCP [Primary Care Provider] -
--- NOTE | 2016-06-03 16:49 | Urology - Consult Note ---
Date of Encounter: 06/03/16 Time of Encounter: 16:46 - Assessment and Plan (1) Renal calculus, left Current Visit: Yes Status: Acute Assessment and plan: I reviewed her CT scan. There are some calcifications near the left distal ureter, but I favor these to be phleboliths rather than ureteral calculi. She does have multiple stones within her left kidney. We can consider a left ureteroscopic stone extraction after she has been discharged and her infection has cleared. The calcifications seen within her kidney to seen to be deep within the parenchyma and may be difficult to access with the ureteroscope. The surgery would require general anesthetic and she would need to have appropriate clearance for that. At this point she does not require urgent stent placement as there is no evidence of hydronephrosis. (2) UTI (urinary tract infection) Current Visit: No Status: Acute Assessment and plan: Only final culture results. Continue IV antibiotics. Appreciate ID consultation. Qualifiers: Urinary tract infection type: site unspecified Hematuria presence: without hematuria Qualified Code(s): N39.0 - Urinary tract infection, site not specified Urology CN:HPI Consult date: 06/03/16 Reason for consult Urology: Other (UTI) Requesting physician: Mariposa Lambert History of present illness: Aryan is a 70-year-old woman who has a history of recurrent urinary tract infections. I saw her previously in 2015. 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 She is admitted for fever. In workup she was noted to have a urinary tract infection. She currently has an indwelling catheter. Escherichia coli with extended spectrum beta-lactamase have grown out of her culture. She says she otherwise feels well currently. She denies any dysuria or pelvic pain. I reviewed her CT scan. There are calcifications seen within the left kidney. There are some possible calcifications alongside her left distal ureter versus nonobstructing left ureteral stones. These calcifications are unchanged as compared to her December 28, 2015 CT scan. Therefore, I think they're more likely to be vascular calcifications rather than ureteral calculi. Past Med Surg Social Fam HX - Past Medical History Medical history: asthma Psychiatric history: depression - Past Surgical History Surgical History: hysterectomy - Social History Smoking Status: Never smoker Smokeless Tobacco Status: No Alcohol use: none Drug use: none - Family History Father Adopted: [place]: JARROD Family Member Ethnicity: Non- Living Status: Age at : 87 Cause of : CANCER Hx Family Cancer: Yes Mother Living Status: Still Living Medications and Allergies Acetaminophen [Tylenol] 650 mg PO Q6HR PRN 12/07/15 [History] Allopurinol [Zyloprim] 200 mg PO QAM 12/07/15 [History] Famotidine [Pepcid] 20 mg PO BID 12/07/15 [History] Ipratropium/Albuterol Neb [Duoneb] 3 ml IH Q4H PRN 12/07/15 [History] Oxybutynin [Ditropan] 5 mg PO HS 12/07/15 [History] Tiotropium [Spiriva] 18 mcg IH QAM 12/07/15 [History] Zafirlukast [Accolate] 20 mg PO BID 12/07/15 [History] Budesonide/Formoterol 160/4.5 [Symbicort 160/4.5] 2 puff IH BIDR #2 inhaler 02/13 [Rx] GuaiFENesin ER [Mucinex] 600 mg PO BID PRN 10 Days 12/10/15 [Rx] BuPROPion SR (12 HR) [Wellbutrin SR] 150 mg PO BID 06/01/16 [History] Diphenoxylate/Atropine [Lomotil 2.5 mg/0.025 mg] 2 tab PO DAILY PRN 06/01/16 [ History] Fenofibrate [Lofibra] 160 mg PO DAILY 06/01/16 [History] Ferrous Sulfate [Iron] 325 mg PO DAILY 06/01/16 [History] Multivit,Th Iron,Other Min [Therems-M] 1 each PO DAILY 06/01/16 [History] TraMADol [Ultram] 50 mg PO TID PRN 06/01/16 [History] Warfarin [Coumadin] 2.5 mg PO DAILY 06/01/16 [History] Allergies No Known Allergies Allergy (Verified 06/01/16 17:19) Review of Systems - Constitutional fever(s), no chills - EENT Nose, mouth and throat: no dizziness - Cardiovascular no chest pain - Respiratory no dyspnea - Gastrointestinal no nausea, no vomiting - Genitourinary Genitourinary: no flank pain, no hematuria - Musculoskeletal no back pain - Integumentary no erythema, no rash - Neurological no weakness - Psychiatric no suicidal ideation - Hematologic/Lymphatic no easy bleeding - Allergic/Immunologic no wheezing Exam Initial Vital Signs Temp Pulse Resp BP Pulse Ox 102.5 F H 113 16 114/81 94 L 06/01/16 15:39 06/01/16 15:39 06/01/16 15:39 06/01/16 15:39 06/01/16 15:39 - General physical appearance Present: well developed, well nourished, no distress - Eyes Absent: icteric - ENT Present: normal nares - Neck Present: trachea midline - Respiratory Present: normal respiratory effort - Cardiovascular Cardiovascular exam IM: RRR - Abdomen Abdomen: Present: soft - Genitourinary Present: normal external genitalia, other (hackett catheter in place. Urine is clear.) Urology Results - Labs 06/03/16 03:57 06/03/16 03:57 Abnormal lab results RBC 3.06 M/mcL (3.82-4.97) L 06/03/16 03:57 Hgb 9.6 g/dL (11.5-15.4) L 06/03/16 03:57 Hct 29.4 % (35.3-44.9) L 06/03/16 03:57 PT 18.9 Seconds (9.4-12.1) H 06/03/16 03:57 Creatinine 1.42 mg/dL (0.57-1.11) H 06/03/16 03:57 Est GFR ( Amer) 44 (> 60) L 06/03/16 03:57 Est GFR (Non-Af Amer) 37 (> 60) L 06/03/16 03:57 Glucose 106 mg/dL (70-99) H 06/03/16 03:57 Calcium 8.3 mg/dL (8.6-10.8) L 06/03/16 03:57 Albumin 3.0 g/dL (3.5-5.0) L 06/01/16 16:47 Albumin/Globulin Ratio 0.9 (1.1-2.2) L 06/01/16 16:47 Urine Clarity Turbid (Clear) A 06/01/16 16:07 Urine Protein 30 mg/dL (Neg-Trace) H 06/01/16 16:07 Urine Blood Moderate (Negative) H 06/01/16 16:07 Urine Nitrite Positive (Negative) A 06/01/16 16:07 Ur Leukocyte Esterase Large (Negative) H 06/01/16 16:07 Urine Microscopic RBC 15-30 per hpf (0-3) H 06/01/16 16:07 Urine Microscopic WBC TNTC per hpf (0-3) H 06/01/16 16:07 Ur Squamous Epith Cells Many per lpf (None-Few) H 06/01/16 16:07 Urine Bacteria Many per hpf (None-Few) H 06/01/16 16:07 Enterobacteriac sp PCR DETECTED (Not Detect) A 06/01/16 16:46 E. coli (PCR) DETECTED (Not Detect) A 06/01/16 16:46 All other labs normal. - Imaging CT scan - abdomen: report reviewed, image reviewed CT scan - pelvis: report reviewed, image reviewed Consult Discharge Plan - Plan Referrals: NO,PCP [Primary Care Provider] -
[2016-06-03] MEDS ORDERED: *HR* Warfarin 5 MG TABLET PO ONE (18:00)
[2016-06-03] MEDS: Lactobacillus 1 EACH CAP.SPRINK PO SCH (21:35)
[2016-06-04 04:43] LABS: Bilirubin,Urine Negative (Negative); Blood,Urine Small (Negative); Clarity,Urine Cloudy (Clear); Color,Urine Yellow (Yellow); Glucose,Urine (UA) Normal (Normal); Ketones,Urine Negative (Negative); Leukocyte Esterase,Urine Large (Negative); Nitrite,Urine Negative (Negative); Protein,Urine Trace mg/dL (Neg-Trace); Specific Gravity,Urine 1.013 (1.010-1.025); Urobilinogen,Urine Normal (Normal)
[2016-06-04 04:49] LABS: Hyaline Casts,Urine None Seen per lpf (None-Few); Squamous Epithelial Cell,Urine Many per lpf (None-Few); WBC,Urine 30-50 per hpf (0-3)
[2016-06-04 05:05] LABS: Bacteria,Urine Few per hpf (None-Few)
[2016-06-04 05:15] LABS: Basophils % 0.7 %; Eosinophils # 0.2 K/mcL (0.0-0.6); Eosinophils % 4.6 %; Hematocrit 28.7 % (35.3-44.9); Hemoglobin 9.6 g/dL (11.5-15.4); Immature Granulocytes % 0.5 % (0-4); Lymphocytes % 21.9 %; Mean Corpuscular HGB Conc 33.4 g/dL (31.6-35.5); Mean Corpuscular Hemoglobin 32.1 pg (28.0-33.3); Mean Platelet Volume 9.8 fL (9.4-12.4); Monocytes # 1.1 K/mcL (0.0-1.3); Monocytes % 24.1 %; Neutrophils # 2.1 K/mcL (1.6-8.9); Platelet Count 235 K/mcL (140-400); Red Blood Count 2.99 M/mcL (3.82-4.97); Red Cell Distribution Width 13.9 % (11.5-14.5); Segmented Neutrophils % 48.2 %
[2016-06-04 05:21] LABS: INR 1.9; Prothrombin Time 21.2 Seconds (9.4-12.1)
[2016-06-04 05:32] LABS: Calcium 8.3 mg/dL (8.6-10.8); Potassium 3.6 mEq/L (3.5-4.5)
[2016-06-04 05:38] LABS: Platelet Estimate Normal (Normal)
[2016-06-04] MEDS: *HR* Heparin 5,000 UNIT/ML VIAL SQ SCH ×3 (06:07→21:49)
[2016-06-04] MEDS: BuPROPion SR (12 HR) 150 MG TABLET PO SCH ×2 (09:25→21:49)
[2016-06-04] MEDS: Famotidine 20 MG TABLET PO SCH (09:25)
[2016-06-04] MEDS: Lactobacillus 1 EACH CAP.SPRINK PO SCH ×2 (09:25→21:49)
[2016-06-04] MEDS: Fenofibrate 54 MG TABLET PO SCH (09:26)
[2016-06-04] MEDS: Ertapenem 1,000 MG in 0.9 % Sodium Chloride Mini Bag 100 ML IVPB SCH (09:26)
[2016-06-04] MEDS: Tiotropium 18 MCG inhalation IH SCH (11:42)
[2016-06-04] MEDS: Budesonide/Formoterol 160/4.5 MDI IH SCH ×2 (11:42→22:15)
--- NOTE | 2016-06-04 11:54 | Infectious Disease Progress No ---
Date of Encounter: 06/04/16 Time of Encounter: 09:45 - Assessment and Plan (1) Sepsis Current Visit: Yes Status: Suspected The patient had two SIRS criteria on admission. Likely secondary to UTI and bacteremia. Improved. The patient has been afebrile >24 hours. Tachycardia has resolved. Blood cultures drawn 06/01/16 are positive 1/2 sets for E. coli ESBL. Repeat blood cultures x 2 sets drawn 06/03/16 are pending. Qualifiers: Sepsis type: Escherichia coli Qualified Code(s): A41.51 - Sepsis due to Escherichia coli [E. coli] (2) Bacteremia Current Visit: Yes Status: Acute Causative organism E. coli ESBL. Source likely the UTI. Blood cultures drawn 06/01/16 is positive 1/2 sets for E. coli ESBL. Repeat blood cultures x 2 sets drawn 06/03/16 are pending. Continue Ertapenem 1 gram IV daily. Duration of treatment depends on the clinical picture, but likely 14 days from the first set of negative blood cultures. Monitor renal function and dose-adjust antibiotics. (3) UTI (urinary tract infection) Current Visit: No Status: Acute Causative organism E. coli ESBL. Recurrent vs. relapse. Etiology likely multifactorial: post-menopausal female vs. colonization of the bladder vs. urinary incontinence/incomplete bladder emptying vs inadequate treatment of prior infections. Called [facility] where the patient resides. Spoke with nurse Grullon. States patient was treated most recently with Invanz 1 gram IV daily x 7 days --> inadequately treated as ESBL requires 10-14 day course of antibiotics. Urine cultures have been positive dating back to November 2015, unsure how the patient has been treated in the past. CT of the abdomen and pelvis shows multiple non-obstructing renal calculi in the left kidney. Urology consulted - appreciate recommendations. Continue Ertapenem 1 gram IV daily (day 3). Encourage adequate PO intake. Continue probiotic. Duration of treatment depends on the clinical picture, but likely 14 days from first set of negative blood cultures. Monitor renal function and dose-adjust antibiotics. Qualifiers: Urinary tract infection type: site unspecified Hematuria presence: without hematuria Qualified Code(s): N39.0 - Urinary tract infection, site not specified (4) Renal calculus, left Current Visit: Yes Status: Acute CT of the abdomen and pelvis shows scattered calcific densities along the left kidney which are favored to represent nonobstructive calculi. CT urogram recommended by radiologist. Could be secondary to the patient's recurrent UTI. Urology consulted and following. Appreciate recommendations. (5) CKD (chronic kidney disease) stage 3, GFR 30-59 ml/min Current Visit: Yes Status: Chronic Serum creatinine stable. Continue to monitor closely. Dose-adjust antibiotics based on creatinine clearance. Avoid nephrotoxins. (6) Asthma Current Visit: Yes Status: Chronic Qualifiers: Asthma severity: unspecified severity Asthma complication type: uncomplicated Qualified Code(s): J45.909 - Unspecified asthma, uncomplicated - Subjective Interval history: Patient seen and examined. No acute events noted overnight. Patient states she feels well this morning. Denies fevers, chills, or rigors. Denies chest pain, shortness of breath, or cough. Denies nausea, vomiting, or diarrhea. States BM this morning was a little loose. States her appetite is good. Denies abdominal pain. Denies urinary complaints or CVA tenderness. Denies oral thrush or skin lesions. Infect Dis PN-Objective Data - Labs CBC & Chem 7: 06/04/16 04:09 06/04/16 04:09 Labs: Laboratory Results - last 24 hr 06/04/16 06/04/16 06/04/16 04:09 04:09 04:09 WBC 4.4 RBC 2.99 L Hgb 9.6 L Hct 28.7 L MCV 96.0 MCH 32.1 MCHC 33.4 RDW 13.9 Plt Count 235 MPV 9.8 Immature Gran % 0.5 Seg Neutrophils % 48.2 Lymphocytes % 21.9 Monocytes % 24.1 Eosinophils % 4.6 Basophils % 0.7 Neutrophils # 2.1 Lymphocytes # 1.0 Monocytes # 1.1 Eosinophils # 0.2 Basophils # 0.0 Platelet Estimate Normal PT 21.2 H INR 1.9 Sodium 138 Potassium 3.6 Chloride 107 Carbon Dioxide 23 BUN 17 Creatinine 1.35 H Est GFR ( Amer) 47 L Est GFR (Non-Af Amer) 39 L BUN/Creatinine Ratio 13 Glucose 93 Calculated Osmolality 287 Calcium 8.3 L Urine Color Urine Clarity Urine pH Ur Specific [place] Urine Protein Urine Glucose (UA) Urine Ketones Urine Blood Urine Nitrite Urine Bilirubin Urine Urobilinogen Ur Leukocyte Esterase Urine Microscopic RBC Urine Microscopic WBC Ur Squamous Epith Cells Urine Bacteria Hyaline Casts Ur Culture Indicated? 06/04/16 04:20 WBC RBC Hgb Hct MCV MCH MCHC RDW Plt Count MPV Immature Gran % Seg Neutrophils % Lymphocytes % Monocytes % Eosinophils % Basophils % Neutrophils # Lymphocytes # Monocytes # Eosinophils # Basophils # Platelet Estimate PT INR Sodium Potassium Chloride Carbon Dioxide BUN Creatinine Est GFR ( Amer) Est GFR (Non-Af Amer) BUN/Creatinine Ratio Glucose Calculated Osmolality Calcium Urine Color Yellow Urine Clarity Cloudy A Urine pH 7.0 Ur Specific [place] 1.013 Urine Protein Trace Urine Glucose (UA) Normal Urine Ketones Negative Urine Blood Small H Urine Nitrite Negative Urine Bilirubin Negative Urine Urobilinogen Normal Ur Leukocyte Esterase Large H Urine Microscopic RBC 5-15 H Urine Microscopic WBC 30-50 H Ur Squamous Epith Cells Many H Urine Bacteria Few Hyaline Casts None Seen Ur Culture Indicated? YES A Cultures: Serology 06/04/16 Range/Units 04:20 Urine Color Yellow (Yellow) Urine Clarity Cloudy A (Clear) Urine pH 7.0 (5.0-8.0) pH Units Ur Specific [place] 1.013 (1.010-1.025) Urine Protein Trace (Neg-Trace) mg/dL Urine Glucose (UA) Normal (Normal) mg/dL Urine Ketones Negative (Negative) mg/dL Urine Blood Small H (Negative) Urine Nitrite Negative (Negative) Urine Bilirubin Negative (Negative) Urine Urobilinogen Normal (Normal) mg/dL Ur Leukocyte Esterase Large H (Negative) Urine Microscopic RBC 5-15 H (0-3) per hpf Urine Microscopic WBC 30-50 H (0-3) per hpf Ur Squamous Epith Cells Many H (None-Few) per lpf Urine Bacteria Few (None-Few) per hpf Hyaline Casts None Seen (None-Few) per lpf Ur Culture Indicated? YES A (NO) Exam - Constitutional Vitals: Temp Pulse Resp BP Pulse Ox 97.9 F 85 15 105/64 94 L 06/04/16 10:41 06/04/16 10:41 06/04/16 10:41 06/04/16 10:41 06/04/16 10:41 General appearance: average body habitus, cooperative, no acute distress - Head Head exam: Present: atraumatic, normal inspection, normocephalic - Eye Eye exam: Present: EOMI, normal appearance, PERRL Pupils: Present: normal accommodation Additional comments: No subconjunctival hemorrhage noted. - ENT ENT exam: Present: mucous membranes moist - Neck Neck exam: Present: normal inspection - Respiratory Respiratory exam: Present: CTAB. Absent: rales, respiratory distress, rhonchi, wheezes - Cardiovascular Cardiovascular exam: Present: RRR, +S1, +S2 - GI/Abdominal GI/Abdominal exam: Present: normal bowel sounds, soft. Absent: distended, tenderness - Extremities Exam Extremities exam: Present: normal inspection. Absent: joint swelling, pedal edema, tenderness - Back Exam Back exam: Absent: CVA tenderness (L), CVA tenderness (R) - Neurological Exam Neurological exam: Present: alert, oriented X3, no focal deficits - Psychiatric Psychiatric exam: Present: normal affect, normal mood - Skin Skin exam: Present: dry, intact, normal color, warm Consult Discharge Plan - Plan Referrals: NO,PCP [Primary Care Provider] -
--- NOTE | 2016-06-04 13:06 | Internal Med Progress Note ---
Date of Encounter: 06/04/16 Time of Encounter: 09:00 - Assessment and plan (1) Infection due to ESBL-producing Escherichia coli Current Visit: Yes Status: Acute Assessment and plan: Urine culture and blood culture consistent with ESBL Escherichia coli. Sensitive to ertapenem, will continue. No leukocytosis. Vital signs are stable. No indication of sepsis at this time. Infectious disease is on board. Repeat blood cultures and repeat urinalysis sent yesterday, awaiting results. Once blood cultures come back negative, plan is to likely transfer her back to [facility]. OT and PT have recommended ECF placement. (2) Bacteremia Current Visit: Yes Status: Acute (3) DVT prophylaxis Current Visit: Yes Status: Acute Assessment and plan: Subcutaneous Heparin. (4) Renal calculus, left Current Visit: Yes Status: Acute Assessment and plan: Acute on chronic. Urology brought on board who feels this patient does not require urgent stent placement and recommends continuing IV antibiotics and following up with urology outpatient. (5) Asthma Current Visit: Yes Status: Chronic Assessment and plan: No acute exacerbation. Patient denies shortness of breath above her norm. Stable. Lungs clear. Continue home medications and monitor vital signs with pulse ox q4h. Qualifiers: Asthma severity: unspecified severity Asthma complication type: uncomplicated Qualified Code(s): J45.909 - Unspecified asthma, uncomplicated (6) CKD (chronic kidney disease) stage 3, GFR 30-59 ml/min Current Visit: Yes Status: Chronic Assessment and plan: Stable. Creatinine is consistent with her baseline. We will continue to trend. (7) H/O deep venous thrombosis Current Visit: Yes Status: Chronic Assessment and plan: Subtherapeutic INR today, 1.9. Pharmacy adjusted Coumadin dose. Remains on Coumadin and Heparin subq. Will continue to monitor pt and labs. (8) Sepsis Current Visit: Yes Status: Resolved Assessment and plan: Pt is afebrile, normotensive, pulse WNL, sats still remain in the low 90s. Continuing Ertapenem 1 gram daily. Infectious disease and urology both on board. See prior note for ESBL Qualifiers: Sepsis type: Escherichia coli Qualified Code(s): A41.51 - Sepsis due to Escherichia coli [E. coli] (9) Fever Current Visit: Yes Status: Resolved Assessment and plan: No fever for >24 hours. Will continue to monitor. Tylenol prn fever. Continue antibiotics. Qualifiers: Fever type: unspecified Qualified Code(s): R50.9 - Fever, unspecified (10) UTI (urinary tract infection) Current Visit: No Status: Acute Assessment and plan: See prior note for ESBL Qualifiers: Urinary tract infection type: site unspecified Hematuria presence: without hematuria Qualified Code(s): N39.0 - Urinary tract infection, site not specified (11) Anemia Current Visit: No Status: Chronic Assessment and plan: Stable. Remains at baseline. Will continue to monitor and continue Iron supplement. Qualifiers: Anemia type: iron deficiency Iron deficiency anemia type: unspecified iron deficiency Qualified Code(s): D50.9 - Iron deficiency anemia, unspecified - Subjective Interval history: Patient seen and examined. On examination, she is sitting upright in bed eating her breakfast. She is alert and oriented and currently denies pain. She is endorsing a normal appetite. She denies shortness of breath. - Constitutional Vitals: Temp Pulse Resp BP Pulse Ox 97.9 F 85 15 105/64 94 L 06/04/16 10:41 06/04/16 10:41 06/04/16 10:41 06/04/16 10:41 06/04/16 10:41 General appearance: Present: A&O X 2 (person and place), pleasant, no acute distress, answers questions appropriately (simple questions) - Head Head exam: Present: atraumatic, normocephalic - Eye Eye exam: Present: PERRL, conjuntiva pink, sclera anicteric Pupils: Present: PERRL - Neck Neck exam general surgery: Present: supple, trachea midline. Absent: lymphadenopathy - Respiratory Respiratory exam: Present: decreased breath sounds. Absent: accessory muscle use, rales, respiratory distress, rhonchi, wheezes - Cardiovascular Cardiovascular exam: Present: RRR, +S1, +S2. Absent: diastolic murmur, gallop, rubs, systolic murmur - GI/Abdominal GI/Abdominal exam: Present: normal bowel sounds, soft, no peritoneal signs. Absent: distended, tenderness - Extremities Exam Extremities exam: Present: warm, radial pulses palpable and symetrical. Absent : calf tenderness, cyanotic, pedal edema - Expanded Lower Extremities Exam Foot/Toe exam: Present: deformity (chronic drop foot right) Neuro vascular tendon exam: Present: no vascular compromise - Neurological Exam Neurological exam: Present: alert, CN II-XII intact, oriented X3, no focal deficits, strengths equal and symetr throughout. Absent: pronater drift, facial droop, speech deficit - Skin Skin exam: Present: dry, intact, pallor, warm Internal Medicine: Result - Labs CBC & Chem 7: 06/04/16 04:09 06/04/16 04:09 Labs: Short CBC 06/04/16 Range/Units 04:09 WBC 4.4 (4.3-11.1) K/mcL Hgb 9.6 L (11.5-15.4) g/dL Hct 28.7 L (35.3-44.9) % Plt Count 235 (140-400) K/mcL Neutrophils # 2.1 (1.6-8.9) K/mcL BMP 06/04/16 04:09 Sodium 138 Potassium 3.6 Chloride 107 Carbon Dioxide 23 BUN 17 Creatinine 1.35 H Glucose 93 Calcium 8.3 L Urine 06/04/16 Range/Units 04:20 Urine Color Yellow (Yellow) Urine Clarity Cloudy A (Clear) Urine pH 7.0 (5.0-8.0) pH Units Ur Specific [place] 1.013 (1.010-1.025) Urine Protein Trace (Neg-Trace) mg/dL Urine Glucose (UA) Normal (Normal) mg/dL - ABG Interpretation ABG results: PT/INR, D-dimer PT 21.2 Seconds (9.4-12.1) H 06/04/16 04:09 Consult Discharge Plan - Plan Referrals: NO,PCP [Primary Care Provider] -
[2016-06-04] MEDS ORDERED: *HR* Warfarin 2.5 MG TABLET PO SCH (18:00)
[2016-06-05] MEDS: *HR* Heparin 5,000 UNIT/ML VIAL SQ SCH (06:13)
[2016-06-05 06:27] LABS: Basophils % 0.8 %; Eosinophils # 0.3 K/mcL (0.0-0.6); Hematocrit 29.8 % (35.3-44.9); Hemoglobin 10.2 g/dL (11.5-15.4); Immature Granulocytes % 0.3 % (0-4); Immature Platelets 1.4 % (1.1-6.1); Lymphocytes # 0.9 K/mcL (0.6-4.6); Lymphocytes % 24.4 %; Mean Corpuscular HGB Conc 34.2 g/dL (31.6-35.5); Mean Corpuscular Hemoglobin 32.4 pg (28.0-33.3); Mean Corpuscular Volume 94.6 fL (83.0-100.0); Mean Platelet Volume 8.9 fL (9.4-12.4); Monocytes # 0.6 K/mcL (0.0-1.3); Monocytes % 15.6 %; Neutrophils # 1.9 K/mcL (1.6-8.9); Platelet Count 305 K/mcL (140-400); Red Blood Count 3.15 M/mcL (3.82-4.97); Red Cell Distribution Width 13.8 % (11.5-14.5); Segmented Neutrophils % 50.9 %
[2016-06-05 06:41] LABS: Calcium 8.5 mg/dL (8.6-10.8); Potassium 3.8 mEq/L (3.5-4.5)
[2016-06-05 06:46] LABS: INR 2.2; Prothrombin Time 23.9 Seconds (9.4-12.1)
[2016-06-05 06:56] VITALS: BP 110/68
[2016-06-05] MEDS: Tiotropium 18 MCG inhalation IH SCH (07:56)
[2016-06-05] MEDS: Budesonide/Formoterol 160/4.5 MDI IH SCH (07:56)
[2016-06-05] MEDS: Ertapenem 1,000 MG in 0.9 % Sodium Chloride Mini Bag 100 ML IVPB SCH (08:57)
[2016-06-05] MEDS: Lactobacillus 1 EACH CAP.SPRINK PO SCH (08:59)
[2016-06-05] MEDS: BuPROPion SR (12 HR) 150 MG TABLET PO SCH (08:59)
[2016-06-05] MEDS: Fenofibrate 54 MG TABLET PO SCH (08:59)
[2016-06-05] MEDS: Famotidine 20 MG TABLET PO SCH (08:59)
--- NOTE | 2016-06-05 09:44 | Discharge Summary ---
Date of Encounter: 06/05/16 Time of Encounter: 08:45 - Discharge Diagnosis (1) Infection due to ESBL-producing Escherichia coli Priority: Primary Status: Acute Comments: Urine culture and blood culture consistent with ESBL Escherichia coli. Sensitive to ertapenem, will continue upon discharge x14 days. Repeat blood cultures negative x2. No leukocytosis. Vital signs are stable. No indication of sepsis. Infectious disease was on board throughout this admission. (2) Bacteremia Priority: Primary Status: Resolved (3) DVT prophylaxis Priority: Primary Status: Acute Comments: Subcutaneous heparin while admitted (4) Renal calculus, left Priority: Primary Status: Acute Comments: Acute on chronic. Urology brought on board who felt this patient did not require urgent stent placement and recommended continuing IV antibiotics and following up with urology outpatient. (5) Asthma Priority: Secondary Status: Chronic Comments: No acute exacerbation Qualifiers: Asthma severity: unspecified severity Asthma complication type: uncomplicated Qualified Code(s): J45.909 - Unspecified asthma, uncomplicated (6) CKD (chronic kidney disease) stage 3, GFR 30-59 ml/min Priority: Secondary Status: Chronic Comments: Stable and consistent with her baseline throughout this admission, follow-up outpatient (7) H/O deep venous thrombosis Priority: Secondary Status: Chronic Comments: Subtherapeutic INR while admitted so SC heparin was also ordered. INR therapeutic on day of discharge of 2.2. Follow-up outpatient. (8) Sepsis Priority: Primary Status: Resolved Qualifiers: Sepsis type: Escherichia coli Qualified Code(s): A41.51 - Sepsis due to Escherichia coli [E. coli] (9) Fever Priority: Primary Status: Resolved Qualifiers: Fever type: unspecified Qualified Code(s): R50.9 - Fever, unspecified (10) UTI (urinary tract infection) Priority: Primary Status: Acute Qualifiers: Urinary tract infection type: site unspecified Hematuria presence: without hematuria Qualified Code(s): N39.0 - Urinary tract infection, site not specified (11) Anemia Priority: Secondary Status: Chronic Comments: Stable. Remains at baseline. Recommend continued Iron supplement and follow-up outpatient. Qualifiers: Anemia type: iron deficiency Iron deficiency anemia type: unspecified iron deficiency Qualified Code(s): D50.9 - Iron deficiency anemia, unspecified - Discharge Medications Prescriptions: Ertapenem [INVanz] 1,000 mg IVPB DAILY #13 vial Lactobacillus [Culturelle] 1 each PO BID #40 cap.sprink Tramadol HCl [Ultram] 50 mg PO TID PRN #15 tab PRN Reason: Pain Home Medications: Acetaminophen [Tylenol] 650 mg PO Q6HR PRN 12/07/15 [History] Allopurinol [Zyloprim] 200 mg PO QAM 12/07/15 [History] Famotidine [Pepcid] 20 mg PO BID 12/07/15 [History] Ipratropium/Albuterol Neb [Duoneb] 3 ml IH Q4H PRN 12/07/15 [History] Oxybutynin [Ditropan] 5 mg PO HS 12/07/15 [History] Tiotropium [Spiriva] 18 mcg IH QAM 12/07/15 [History] Zafirlukast [Accolate] 20 mg PO BID 12/07/15 [History] Budesonide/Formoterol 160/4.5 [Symbicort 160/4.5] 2 puff IH BIDR #2 inhaler 02/13 [Rx] GuaiFENesin ER [Mucinex] 600 mg PO BID PRN 10 Days 12/10/15 [Rx] BuPROPion SR (12 HR) [Wellbutrin SR] 150 mg PO BID 06/01/16 [History] Diphenoxylate/Atropine [Lomotil 2.5 mg/0.025 mg] 2 tab PO DAILY PRN 06/01/16 [ History] Fenofibrate [Lofibra] 160 mg PO DAILY 06/01/16 [History] Ferrous Sulfate [Iron] 325 mg PO DAILY 06/01/16 [History] Multivit,Th Iron,Other Min [Therems-M] 1 each PO DAILY 06/01/16 [History] Warfarin [Coumadin] 2.5 mg PO DAILY 06/01/16 [History] Ertapenem [INVanz] 1,000 mg IVPB DAILY #13 vial 06/05/16 [Rx] Lactobacillus [Culturelle] 1 each PO BID #40 cap.sprink 06/05/16 [Rx] Tramadol HCl [Ultram] 50 mg PO TID PRN #15 tab 06/05/16 [Rx] Allergies/Adverse Reactions: Allergies No Known Allergies Allergy (Verified 06/01/16 17:19) Date of admission: 06/03/16 08:54 Primary care physician: PCP NO Consults: 06/03/16 10:51 Consult to Infectious Diseases [CONS] Routine Consulting Provider: Infectious [facility] [place] Reason for Consult: Pt has had multiple recurrent UTIs since November, E coli ESBL. Sepsis this admission. Per family request. Time Notified: 10:52 Call Completed: Yes 06/03/16 12:35 Consult to Occupational Therapy [CONS] Routine Comment: Evaluate, develop and implement POC Consult to Physical Therapy [CONS] Routine Comment: Evaluate, develop and implement POC 06/03/16 13:09 Consult to Urology [CONS] Routine Consulting Provider: Urology [place] Reason for Consult: Recurrent UTI, E coli ESBL, Proteus. CKD Stage III. ECF resident Time Notified: 13:11 Call Completed: No Discharging clinician: Mariposa Lambert Anticipated date of discharge: 06/05/16 (bedhold at [facility]) - Patient Status Disposition: Transfer Psychiatric Hosp Condition: Good Functional capacity at discharge: uses cane/walker Overall status at discharge: patient is back to baseline - Discharge Instructions Follow Up With: Mathew Rdz MD [Non-Partnered Physician] - Iam Davila MD [Partnered Physician] - Additional Instructions: Follow-up with primary care provider in 1-2 weeks, follow-up with urology in 1- 2 weeks - Diet and Activity Activity: as per physical therapy, increase activity as tolerated Diet: low salt diet Hospital course: Ms. Luo is a 70 year old female past medical history of asthma, chronic kidney disease stage III, history of DVTs now on Coumadin. Patient is a permanent resident signatures. She presented to the emergency department chief complaint fever and emesis 1 day. Urinalysis abnormal in the emergency department, patient with history of Escherichia coli ESBL. Patient was admitted to the hospitalist service for further evaluation and management. In review of her prior urine culture reports, patient was started on ertapenem. Chest x-ray unremarkable. Patient denied shortness of breath above her normal throughout this admission. Urine culture consistent with Escherichia coli ESBL sensitive to ertapenem. Blood cultures were also initially positive also revealing Escherichia coli ESBL and Enterobactereriaceae. Patient initially met serious criteria upon admission that quickly resolved. Patient remained hemodynamically stable. No leukocytosis. Her vital signs remained stable. Infectious disease was brought on board who recommended a 14 day course of ertapenem after the first negative blood culture. Repeat blood cultures were negative 2. OT and PT report on board who recommended ECF placement. Abdominal pelvic CT also revealed renal calculi acute on chronic. Urology was brought on board to do not feel the patient required urgent stent placement as there were no clinical findings suggestive of pyelonephritis and she was cleared for outpatient follow-up from a urological standpoint. She was discharged back to [facility] in stable condition with 13 more days of ertapenem , extended peripheral IV placed prior to discharge. ITS Impressions Chest X-Ray 06/01/16 15:42 IMPRESSION: Retrocardiac left basilar atelectasis or consolidation. D/ : / 06/01/2016 16:13:22 Chadwick Louis MD / Marina Garcia Interpreting Provider: Chadwick Louis MD Chest X-Ray 06/01/16 16:14 IMPRESSION: Mild left basilar atelectasis is similar to prior. No evidence of pleural effusion. D/ /01/2016 16:39:45 Mary Lewis MD / Marina Garcia Interpreting Provider: Mary Lewis MD Abdomen/Pelvis CT 06/01/16 21:42 IMPRESSION: 1. Scattered calcific densities along the left kidney measure up to 8 mm, which are favored to represent nonobstructive calculi, with parenchymal calcifications less likely. Several calcific foci along the inferior pole are associated with cystic spaces, which could represent stones within calyceal diverticula or less likely nodular calcification of renal cysts. Further evaluation with CT urogram could be considered. 2. Chronic urothelial thickening on the left, likely the sequelae of prior infection/inflammation. Punctate nonobstructive calculi are seen in the distal left ureter, which is unchanged since at least 12/28/2015. The left ureter is decompressed. 3. Malrotated right kidney. No right-sided renal calculi. 4. Cholelithiasis. 5. Moderate diverticulosis. D/ / 06/02/2016 08:22:09 Jag Saini MD / Marina Garcia Interpreting Provider: Jag Saini MD - Time Spent with Patient Total time spent providing and/or coordinating discharge services: - Constitutional Vitals: Temp Pulse Resp BP Pulse Ox 98.0 F 84 15 110/68 94 L 06/05/16 06:51 06/05/16 06:51 06/05/16 08:01 06/05/16 06:51 06/05/16 08:01 General appearance: Present: A&O X 2 (person and place), pleasant, no acute distress, answers questions appropriately (simple questions) - Head Head exam: Present: atraumatic, normocephalic - Eye Eye exam: Present: PERRL, conjuntiva pink, sclera anicteric Pupils: Present: PERRL - Neck Neck exam general surgery: Present: supple, trachea midline. Absent: lymphadenopathy - Respiratory Respiratory exam: Present: CTAB. Absent: accessory muscle use, rales, respiratory distress, rhonchi, wheezes - Cardiovascular Cardiovascular exam: Present: RRR, +S1, +S2. Absent: diastolic murmur, gallop, rubs, systolic murmur - GI/Abdominal GI/Abdominal exam: Present: normal bowel sounds, soft, no peritoneal signs. Absent: distended, tenderness - Extremities Exam Extremities exam: Present: warm, radial pulses palpable and symetrical. Absent : calf tenderness, cyanotic, pedal edema - Neurological Exam Neurological exam: Present: alert, CN II-XII intact, no focal deficits, strengths equal and symetr throughout. Absent: pronater drift, facial droop, speech deficit - Skin Skin exam: Present: dry, intact, normal color, warm
--- NOTE | 2016-06-05 10:04 | Physician Discharge Referral ---
[facility] Referral Info Transfer To: [facility] Provider in Charge: Luis Alberto Lambert CNP Provider in Charge after Transfer: PCP Institutional Level of Care: Skilled - Diagnosis (1) Infection due to ESBL-producing Escherichia coli Priority: Primary Status: Acute (2) Bacteremia Priority: Primary Status: Resolved (3) DVT prophylaxis Priority: Primary Status: Acute (4) Renal calculus, left Priority: Primary Status: Acute (5) Asthma Priority: Secondary Status: Chronic (6) CKD (chronic kidney disease) stage 3, GFR 30-59 ml/min Priority: Secondary Status: Chronic (7) H/O deep venous thrombosis Priority: Secondary Status: Chronic (8) Sepsis Priority: Primary Status: Resolved (9) Fever Priority: Primary Status: Resolved (10) UTI (urinary tract infection) Priority: Primary Status: Acute (11) Anemia Priority: Secondary Status: Chronic Prognosis: Fair Aware of Diagnosis: Patient Aware of Prognosis: Patient - Transfer Medications Prescriptions: Ertapenem [INVanz] 1,000 mg IVPB DAILY #13 vial Lactobacillus [Culturelle] 1 each PO BID #40 cap.sprink Tramadol HCl [Ultram] 50 mg PO TID PRN #15 tab PRN Reason: Pain Home Medications: Acetaminophen [Tylenol] 650 mg PO Q6HR PRN 12/07/15 [History] Allopurinol [Zyloprim] 200 mg PO QAM 12/07/15 [History] Famotidine [Pepcid] 20 mg PO BID 12/07/15 [History] Ipratropium/Albuterol Neb [Duoneb] 3 ml IH Q4H PRN 12/07/15 [History] Oxybutynin [Ditropan] 5 mg PO HS 12/07/15 [History] Tiotropium [Spiriva] 18 mcg IH QAM 12/07/15 [History] Zafirlukast [Accolate] 20 mg PO BID 12/07/15 [History] Budesonide/Formoterol 160/4.5 [Symbicort 160/4.5] 2 puff IH BIDR #2 inhaler 02/13 [Rx] GuaiFENesin ER [Mucinex] 600 mg PO BID PRN 10 Days 12/10/15 [Rx] BuPROPion SR (12 HR) [Wellbutrin SR] 150 mg PO BID 06/01/16 [History] Diphenoxylate/Atropine [Lomotil 2.5 mg/0.025 mg] 2 tab PO DAILY PRN 06/01/16 [ History] Fenofibrate [Lofibra] 160 mg PO DAILY 06/01/16 [History] Ferrous Sulfate [Iron] 325 mg PO DAILY 06/01/16 [History] Multivit,Th Iron,Other Min [Therems-M] 1 each PO DAILY 06/01/16 [History] Warfarin [Coumadin] 2.5 mg PO DAILY 06/01/16 [History] Ertapenem [INVanz] 1,000 mg IVPB DAILY #13 vial 06/05/16 [Rx] Lactobacillus [Culturelle] 1 each PO BID #40 cap.sprink 06/05/16 [Rx] Tramadol HCl [Ultram] 50 mg PO TID PRN #15 tab 06/05/16 [Rx] Allergies/Adverse Reactions: Allergies No Known Allergies Allergy (Verified 06/01/16 17:19) - Respiratory Orders Smoking Cessation: Smoking cessation has been advised. For more information, call the [place] Tobacco Quit Line at 6-914-QJBG-NOW. - Ancillary Orders May use pressure relief devices daily prn, May go on DAMION w/family/respon democrat w /meds at nurse discretion PRN, May have alcoholic beverages, May consult with Dentist, Elastic Cutter, Engraving Press Operator PRN - Advance Directives Living Will: Yes Power of Corporate Development Analyst: Yes Code Status: Full Code - Mobility Orders Ambulate (per PT) - Rehabiliation Orders Rehab Potential: Fair Rehab Orders: ROM Exercises, Evaluation for Physical Therapy, Evaluation for Occupational Therapy - Treatments Skin tear care topically daily PRN per policy, May check for fecal impaction rectally daily PRN, Fleet enema rectally every other day PRN cleansing purposes - Diet Orders Renal CERTIFICATION: I certify that the transfer of the above named patient to an Extended Care Facility is necessary for the continuing treatment of the diagnosis listed. The above information is true and accurate reflection of patient's current condition. Confidential - Redisclosure prohibited without a patient's written consent.
== END 2016-06-05 10:38 | DRG 872 ==
LOC: EMEROO 15:37 → 3BNU 15:37
PROVIDERS: ADMIT Registered Nurse; ATTEND Nurse Practitioner Family